=== PATIENT | female | born 1970 | race Asian ===

== ENCOUNTER 2020-01-17 10:53 | Outpatient (REF) | payer OTHER, SELFPAY ==
[2020-01-17 14:27] LABS: Alanine Aminotransferase 21 U/L (0-31); Albumin Level 4.8 g/dL (3.5-5.0); Alkaline Phosphatase 69 U/L (39-117); Anion Gap 14 (12-20); Aspartate Amino Transferase 33 U/L (5-31); Bilirubin Total 0.8 mg/dL (0.0-1.0); Blood Urea Nitrogen 10 mg/dL (9-16); Calcium 9.5 mg/dL (8.4-10.2); Carbon Dioxide 27 mmol/L (22-29); Chloride 104 mmol/L (96-108); Cholesterol 230 mg/dL; Estimated Glomerular Filt Rate > 60; Glucose Fasting 80 mg/dL (60-99); HDL Cholesterol 80 mg/dL; LDL Cholesterol Calculated 135 mg/dl; Potassium 4.5 mmol/l (3.3-5.1); Sodium 140 mmol/L (135-145); Total Protein 8.4 g/dL (6.5-8.0); Triglycerides 77 mg/dL
== END 2020-01-17 10:54 | disposition home or self-care (01) ==
LOC: HO.HMGCLDS 10:53
PROVIDERS: PCP Internal Medicine; Visit Provider Internal Medicine
DX: Z00.01 Encounter for general adult medical examination with abnormal findings (principal); Z82.69 Family history of other diseases of the musculoskeletal system and connective tissue; Z86.39 Personal history of other endocrine, nutritional and metabolic disease
CPT/HCPCS: 80053; 80061; 82306; 84443; 84550

== ENCOUNTER 2020-08-09 13:06 | Outpatient (REF) | payer OTHER, SELFPAY ==
--- NOTE | ~2020-08-09 | MM_ITS ---
EXAMINATION: MM SCREENING DIGITAL BREAST TOMOSYNTHESIS, BILATERAL CLINICAL INFORMATION: Screening. Asymptomatic. The lifetime risk of breast cancer based on the Tyrer-Cuzick Model is 11.6%. COMPARISON: Mammography: July 27, 2019 and studies dating back to July 01, 2010 TECHNIQUE: Digital breast tomosynthesis is performed in both the craniocaudal and mediolateral oblique views along with computer-aided detection (CAD). Synthesized 2D images are generated from the tomosynthesis. FINDINGS: The breasts are extremely dense, which lowers the sensitivity of mammography (ACR BI-RADS breast composition Category d). There are no significant masses, abnormal calcifications, or other abnormalities. MM/MM tomosynthesis screening BI IMPRESSION: There are no significant changes from prior study. ASSESSMENT: BI-RADS 1: Negative RECOMMENDATION: Routine annual mammography screening. This patient's information was entered into a reminder system with a target due date for their next mammogram.
== END 2020-08-09 13:07 | disposition home or self-care (01) ==
LOC: HO.MAMMO 13:06
PROVIDERS: Visit Provider Internal Medicine
DX: Z12.31 Encounter for screening mammogram for malignant neoplasm of breast (principal)
CPT/HCPCS: 77063; 77067

== ENCOUNTER 2020-09-04 17:18 | Inpatient (IN) | payer OTHER, SELFPAY ==
--- NOTE | ~2020-09-04 | US_ITS ---
EXAMINATION: US ABDOMEN LIMITED CLINICAL INFORMATION: Right upper quadrant abdominal pain. Evaluate for acute cholecystitis. COMPARISON: None TECHNIQUE: Real-time imaging of the right upper quadrant abdominal viscera. FINDINGS: PANCREAS: Normal. LIVER: Normal. The liver is normal in size. The liver contour is normal. Parenchymal echogenicity is normal. No focal hepatic lesion. There is no intrahepatic biliary duct dilatation seen. GALLBLADDER: Normal or stone measuring up to 2.1 cm. No gallbladder wall thickening or pericholecystic free fluid to suggest acute cholecystitis. COMMON BILE DUCT: Normal in caliber measuring 0.7 cm in diameter. RIGHT KIDNEY: Exophytic simple cyst measuring 0.8 cm. Findings are not clinically significant and no follow up imaging is recommended. No renal stone. No hydronephrosis. The kidney measures 10.6 cm in maximum dimension. FREE FLUID: None. US/US abdomen limited IMPRESSION: Cholelithiasis without gallbladder wall thickening or pericholecystic free fluid to suggest acute cholecystitis.
[2020-09-04 17:38] VITALS: BP 113/64; PULSE 61; RESP 15; TEMP 36.6; O2SAT 99; BMI 20.7
--- NOTE | 2020-09-04 17:48 | ED_ITS ---
HPI - Abdominal Pain General Chief Complaint: Abdominal Pain Stated Complaint: Vomiting Abd Pain Time Seen by Provider: 09/04/20 17:29 Source: patient and family Mode of arrival: wheelchair Limitations: no limitations History of Present Illness HPI narrative: 50-year-old female with a past medical history of hyperlipidemia here with complaints of right upper quadrant abdominal pain with vomiting since 15:00. No urinary symptoms, fevers, chills, diarrhea. No longer has her menses. Related Data Previous Rx's Medication Instructions Recorded simvastatin 10 mg tablet 10 mg PO BEDTIME #90 cap 01/10/20 Allergies Allergy/AdvReac Type Severity Reaction Status Date / Time aspirin [Aspirin] Allergy Mild LARGER Verified 01/16/20 12:21 DOSES ONLY--HIVES, hives latex [Latex] Allergy Mild ITCHING/BEREKET Verified 01/16/20 12:21 H ibuprofen [From MOTRIN] Allergy Unknown HIVES Verified 01/16/20 12:21 aspirin in reg/strong doses Allergy Unknown hives Uncoded 05/04/18 00:00 (t Review of Systems Review of Systems Yes all other systems are reviewed and are negative Constitutional: Reports no additional constitutional complaints, Denies body ache(s), Denies chills, Denies fever(s), Denies headache(s) and Denies weakness Eyes: Reports no additional eye complaints and Denies change in vision Reports system reviewed and no additional complaints, except as documented, Denies dizziness, Denies headache(s), Denies nasal congestion, Denies nasal discharge and Denies neck pain Cardiovascular: Reports no additional cardiovascular complaints, Denies chest pain, Denies leg edema and Denies dyspnea Respiratory: Reports no additional respiratory complaints, Denies cough and Denies dyspnea Gastrointestinal: Reports no additional gastrointestinal complaints, Reports abdominal pain, Denies diarrhea, Reports nausea and Reports vomiting Genitourinary: Reports no additional female genitourinary complaints and Denies urinary incontinence Musculoskeletal: Reports no additional musculoskeletal complaints, Denies back p ain, Denies arthralgias, Denies joint swelling, Denies neck pain, Denies numbness and Denies tingling Skin/Breast: Reports system reviewed and no additional complaints, except as docu and Denies rash Reports system reviewed and no additional complaints, except as documented, Denies dizziness, Denies headache(s), Denies numbness, Denies tingling and Denies weakness Physical Exam Vital Signs: Vital Signs: Last Vital Signs Temp 97.9 F 09/04/20 17:38 Pulse 61 09/04/20 17:38 Resp 15 09/04/20 17:38 BP 113/64 09/04/20 17:38 Pulse Ox 99 09/04/20 17:38 Body Mass Index 20.7 Const: Other: In pain Orientation/consciousness: patient oriented x3 Limitations: no limitations HENMT: Head: Yes normal to inspection Mouth: Normal oral and palatal mucosa present Throat: Yes posterior oropharynx normal Eyes: General: appearance normal, both eyes and all related structures Pupils: Equal, round and reactive pupils present Chest: Chest palpation & inspection: normal inspection of the chest Resp: Effort & Inspection: normal respiratory effort Auscultation: clear to auscultation bilaterally Cardio: Rate: regular rate Rhythm: regular rhythm Peripheral pulses: Peripheral pulses 2+ throughout GI: Inspection: Yes normal to inspection Palpation (GI): Soft to palpation, Tenderness to palpation present (GI) (Right upper quadrant) and Guarding due to palpation present (GI) Auscultation: normal bowel sounds Skin: General skin exam: no rashes or lesions noted Neuro: General: patient oriented x3 and moves all extremities Cranial nerves: Yes Equal, round and reactive pupils present Cognition (Neuro): normal cognition Course Course Course Narrative: [age] year female here with right upper quadrant abdominal pain with vomiting sicne 3pm. Will check labs, UA, abdominal US 1830-Pain, nausea improved. Labs show no leukocytosis. Mildly elevation AST/ALT. Abdominal US informally gallstones. D/w with medical oncologist surgery. Plan for admit for OR tomorrow. MDM - Abdominal Pain MDM Narrative Medical decision making narrative: Cholecystitis, gallstone Medical Records Attestation: I reviewed the patient's medical records. Lab Data Attestation: I reviewed the patient's lab results. Result diagrams: 09/04/20 17:53 09/04/20 17:53 Labs: Lab Results 09/04/20 09/04/20 09/04/20 Range/Units 17:53 17:53 18:59 WBC 9.0 (4.8-10.8) X10*3/uL RBC 4.55 (4.20-5.50) X10*6/uL Hgb 14.4 (12.0-16.0) g/dl Hct 41.3 (37-47) % MCV 90.8 (80-98) fL MCH 31.6 (27.0-33.0) pg MCHC 34.9 (31.0-35.0) g/dl RDW 12.9 (11.0-16.0) % Plt Count 248 (160-400) X10*3/uL MPV 9.4 (9.4-12.3) fL Immature Gran % (Auto) 0.2 (0.0-0.4) % Neut % (Auto) 74.4 H (45-73) % Lymph % (Auto) 19.7 L (20-40) % Motley % (Auto) 5.0 (2-11) % Eos % (Auto) 0.3 (0-4) % Baso % (Auto) 0.4 (0-2) % Lymph # (Auto) 1.8 (1.2-4.9) X10*3/uL Motley # (Auto) 0.5 (0.1-1.2) X10*3/uL Eos # (Auto) 0.0 (0.0-0.4) X10*3/uL Baso # (Auto) 0.0 (0.0-0.2) X10*3/uL Abs Immat Gran (auto) 0.02 (0.00-0.03) X10*3/uL Absolute Neuts (auto) 6.7 (2.0-8.3) X10*3/uL Absolute Nucleated RBC 0.000 (0.0-0.012) X10*3/uL Nucleated RBC % (auto) 0.0 (0.0-0.2) /100WBC Sodium 143 (135-145) mmol/L Potassium 4.0 (3.3-5.1) mmol/L Chloride 102 (96-108) mmol/L Carbon Dioxide 29 (22-29) mmol/L Anion Gap 16 (12-20) BUN 18 H D (9-16) mg/dL Creatinine 0.83 (0.5-1.4) mg/dL Estim Creat Clear Calc 65.5 Estimated GFR > 60 Random Glucose 146 H (60-115) mg/dL Calcium 9.5 (8.4-10.2) mg/dL Total Bilirubin 0.7 (0.0-1.0) mg/dL Direct Bilirubin 0.5 (0.0-0.5) mg/dL AST 304 H (5-31) U/L ALT 139 H (0-31) U/L Alkaline Phosphatase 106 D (39-117) U/L Total Protein 8.3 H (6.5-8.0) g/dL Albumin 4.7 (3.5-5.0) g/dL COVID-19 (RADHA) Negative (Negative) COVID-19 Clin Com See Note Imaging Data US - abdomen: Attestation: I personally reviewed and interpreted this imaging study as follows: Radiologist's impression: FINDINGS: PANCREAS: Normal. LIVER: Normal. The liver is normal in size. The liver contour is normal. Parenchymal echogenicity is normal. No focal hepatic lesion. There is no intrahepatic biliary duct dilatation seen. GALLBLADDER: Normal or stone measuring up to 2.1 cm. No gallbladder wall thickening or pericholecystic free fluid to suggest acute cholecystitis. COMMON BILE DUCT: Normal in caliber measuring 0.7 cm in diameter. RIGHT KIDNEY: Exophytic simple cyst measuring 0.8 cm. Findings are not clinically significant and no follow up imaging is recommended. No renal stone. No hydronephrosis. The kidney measures 10.6 cm in maximum dimension. FREE FLUID: None. US/US abdomen limited IMPRESSION: Cholelithiasis without gallbladder wall thickening or pericholecystic free fluid to suggest acute cholecystitis. Discharge Plan Discharge Clinical Impression: Gallstones Patient Disposition: Admitted As Inpatient [facility] Past Medical History Attestation statement: The following information was validated with the patient. Source: old records reviewed and nursing notes reviewed Medical History Dyslipidemia Family history of gout History of hyperthyroidism Surgical History History of breast biopsy Family History Family History Father CAD (coronary artery disease) Cancer of prostate Colon cancer Hyperlipidemia CVD (cardiovascular disease) Gout Mother Hyperlipidemia HTN (hypertension) Psoriasis Rheumatoid arthritis Gout Maternal Aunt Breast cancer Gout Paternal Aunt Myocardial infarction Gout Brother Gout Brother Gout Daughter No problems noted. Daughter No problems noted. Social History Social History Alcohol intake: current Advance Directives: No Advance Directives Information Provided: Yes Patient : No
[2020-09-04] MEDS: Morphine Sulfate 4 MG/ML CARTRIDGE IVPUSH (17:57)
[2020-09-04] MEDS: 0.9 % Sodium Chloride 1,000 ML 999 ML IV (17:57)
[2020-09-04 17:58] LABS: MANUAL DIFF FLAG NO
[2020-09-04 17:59] LABS: Basophils Percent Auto 0.4 % (0-2); Eosinophils Percent Auto 0.3 % (0-4); Hematocrit 41.3 % (37-47); Hemoglobin 14.4 g/dl (12.0-16.0); Imm Gran Abs Auto 0.02 X10*3/uL (0.00-0.03); Imm Gran Pct Auto 0.2 % (0.0-0.4); Lymphocytes Absolute Auto 1.8 X10*3/uL (1.2-4.9); Lymphocytes Percent Auto 19.7 % (20-40); Mean Corpuscular HGB Conc 34.9 g/dl (31.0-35.0); Mean Corpuscular Hemoglobin 31.6 pg (27.0-33.0); Mean Corpuscular Volume 90.8 fL (80-98); Mean Platelet Volume 9.4 fL (9.4-12.3); Monocytes Absolute Auto 0.5 X10*3/uL (0.1-1.2); Neutrophils Absolute Auto 6.7 X10*3/uL (2.0-8.3); Neutrophils Percent Auto 74.4 % (45-73); Platelet Count 248 X10*3/uL (160-400); Red Blood Count 4.55 X10*6/uL (4.20-5.50); Red Cell Distribution Width 12.9 % (11.0-16.0)
[2020-09-04 18:28] LABS: Alanine Aminotransferase 139 U/L (0-31); Albumin Level 4.7 g/dL (3.5-5.0); Alkaline Phosphatase 106 U/L (39-117); Anion Gap 16 (12-20); Aspartate Amino Transferase 304 U/L (5-31); Bilirubin Direct 0.5 mg/dL (0.0-0.5); Bilirubin Total 0.7 mg/dL (0.0-1.0); Blood Urea Nitrogen 18 mg/dL (9-16); Calcium 9.5 mg/dL (8.4-10.2); Carbon Dioxide 29 mmol/L (22-29); Chloride 102 mmol/L (96-108); Creatinine Clr Calc Pharmacy 65.5; Estimated Glomerular Filt Rate > 60; Glucose Random 146 mg/dL (60-115); Sodium 143 mmol/L (135-145); Total Protein 8.3 g/dL (6.5-8.0)
--- NOTE | 2020-09-04 18:49 | PHA.MEDREC ---
Pharmacy Consult ? Medication Reconciliation Pharmacy has completed the medication reconciliation.
[2020-09-04 19:21] LABS: COVID-19 Test Negative (Negative); IDNOW Serial# 08D9AD1C
--- NOTE | 2020-09-04 19:28 | PM.HPGS ---
History of Present Illness History of Present Illness Date of Service: 09/05/20 Chief complaint: Gallstones Narrative: Meredith Hooks is a 50 year old female who started to have severe, sudden epigastric and right upper quadrant pain at around 3 pm today. She had multiple episodes of vomitting as well. She described the pain as radiating to the right shoulder. The pain was decribed as severe, causing her to double up on the couch. She was therefore brought to the ED. She does not have any similar episodes in the past. She was otherwise in her usual state of health today. She has no diarrhea. She felt better after getting pain meds in the ED, but states that the RUQ pain still comes in waves although lesser in intensity. Review of Systems Constitutional: Constitutional: Denies chills and Denies fever(s) Cardiovascular: Cardiovascular: Denies chest pain, Denies dyspnea and Denies dyspnea on exertion Respiratory: Respiratory: Denies cough, Denies dyspnea and Denies dyspnea on exertion Gastrointestinal: Gastrointestinal: Denies hematochezia and Denies change in bowel habits Genitourinary: Genitourinary: Denies hematuria Musculoskeletal: Musculoskeletal: Denies back pain and Denies limited range of motion Neurologic: Denies focal weakness and Denies convulsions Psychiatric: Psychiatric: Denies depression and Denies mood swings PMFSH Past Medical History Medical History Dyslipidemia Family history of gout History of hyperthyroidism Family History Family History Father CAD (coronary artery disease) Cancer of prostate Colon cancer Hyperlipidemia CVD (cardiovascular disease) Gout Mother Hyperlipidemia HTN (hypertension) Psoriasis Rheumatoid arthritis Gout Maternal Aunt Breast cancer Gout Paternal Aunt Myocardial infarction Gout Brother Gout Brother Gout Daughter No problems noted. Daughter No problems noted. Surgical History Surgical History History of breast biopsy Social History Social History Household Members: Family Housing: House Do you presently have visiting nurse or other home services: No Alcohol intake: never Patient Tobacco Use Status: Former Tobacco user Tobacco use type: Cigarette Use of substances other than those prescribed or required for medical reasons: No Currently Displaying Signs/Symptoms of Drug Intoxication Withdrawal: No Have you been hit, kicked, punched, or otherwise hurt by someone within the past year? If so, by whom?: No Do you feel safe in your current relationship?: No Is there a partner from a previous relationship who is making you feel unsafe now?: No Are you made to feel afraid or neglected: No Advance Directives: No Advance Directives Information Provided: Yes Do you have thoughts of harming others: None Do you have a plan to hurt others: No Plan Recently lost weight without trying: No How much weight loss: Not applicable Eating poorly because of decreased appetite: No Nutrition screen score: 0 Nutrition Risks: No Nutritional Risk Patient : No : No Poor oral hygiene: No service: No Current occupational status: unemployed Meds Allergies Allergy/AdvReac Type Severity Reaction Status Date / Time aspirin [Aspirin] Allergy Mild LARGER Verified 01/16/20 12:21 DOSES ONLY--HIVES, hives latex [Latex] Allergy Mild ITCHING/BEREKET Verified 01/16/20 12:21 H ibuprofen [From MOTRIN] Allergy Unknown HIVES Verified 01/16/20 12:21 aspirin in reg/strong doses Allergy Unknown hives Uncoded 05/04/18 00:00 (t Active Medications: Current Medications Generic Name Dose Route Start Last Admin Trade Name Freq PRN Reason Stop Dose Admin Lactated Ringer's 1,000 mls @ 80 mls/hr 09/04/20 19:30 Lr IVCONT .[id number] [facility] Morphine Sulfate 3 mg 09/04/20 19:25 Morphine Sulfate 4 Mg/Ml Cartridge IVPUSH Q3H PRN Pain, Severe (Pain Scale 7-10) Pharmacy Consult 1 each 09/04/20 18:34 Consult Rx Perform Med Rec MISCELLANE ONCE PRN Consult order Sodium Chloride 3 ml 09/05/20 00:00 0.9 % Sodium Chloride Flush 3 Ml Syringe IVFLUSH QSHIFT [facility] Physical Exam Vital Signs: Vital Signs: Last Vital Signs Temp 97.9 F 09/04/20 17:38 Pulse 61 09/04/20 17:38 Resp 15 09/04/20 17:38 BP 113/64 09/04/20 17:38 Pulse Ox 99 09/04/20 17:38 Body Mass Index 20.7 Const: General: comfortable and no acute distress Orientation/consciousness: patient oriented x3 Neck: Neck: Yes no lymphadenopathy Resp: Auscultation: clear to auscultation bilaterally Cardio: Rhythm: regular rhythm GI: Other: some tenderness, RUQ, no rebound or guarding, no Sequeira's sign Palpation (GI): Soft to palpation, nontender and no guarding Neuro: General: patient oriented x3 Results Results Labs: Short CBC 09/04/20 Range/Units 17:53 WBC 9.0 (4.8-10.8) X10*3/uL Hgb 14.4 (12.0-16.0) g/dl Hct 41.3 (37-47) % Plt Count 248 (160-400) X10*3/uL BMP 09/04/20 17:53 Sodium 143 Potassium 4.0 Chloride 102 Carbon Dioxide 29 BUN 18 H D Creatinine 0.83 Calcium 9.5 Liver Function 09/04/20 Range/Units 17:53 Total Bilirubin 0.7 (0.0-1.0) mg/dL Direct Bilirubin 0.5 (0.0-0.5) mg/dL AST 304 H (5-31) U/L ALT 139 H (0-31) U/L Alkaline Phosphatase 106 D (39-117) U/L Albumin 4.7 (3.5-5.0) g/dL Abdominal ultrasound report/results: report reviewed and image reviewed Assessment and Plan (1) Gallstones: Status: Acute 50F with severe RUQ pain this afternoon, with an US showing gallstones. There is no evidence of GB wall thickening or pericholecystic fluid. She however continues to have periodic pain that comes in waves suggestive of severe biliary colic. She will be therefore admitted for laparoscopic cholecystectomy tomorrow in view of her severe periodic pain. She understands the technque of the procedure, as well as the risks, including but not limited to bleeding, infections, injury to other organs, bile leak, retained stones, possible conversion to open, as well as the benefits and alternatives. Her ALT and AST are elevated but her bilirubin is normal. Her LFTs will be repeated in AM. Quality Stroke Does the patient have a stroke diagnosis?: No VTE Prior VTE?: No VTE Risk Level:: Medical - low VTE Device Contraindication: N/A - Device Ordered VTE Drug Contraindication: Patient Refused Procedures Date of Service Date of Service: 08/07/20
[2020-09-04 20:08] LABS: Glucose Urine UA NEG (NEG); Leukocyte Esterase Urine NEG (NEG); Nitrite Urine NEG (NEG); Specific Gravity - Urine 1.015 (1.005-1.025); Urine Blood NEG (NEG); Urine Ketones 5 MG/DL (NEG); Urine Protein NEG (NEG-TRACE)
[2020-09-04 20:09] LABS: Appearance Urine CLEAR; Color Urine YELLOW
--- NOTE | 2020-09-04 20:30 | PC.NURSE ---
ATTEMPT TO CALL THE FLOOR FOR REPORT, NO ANSWER.
[2020-09-04 21:34] VITALS: BP 94/59; PULSE 56; RESP 16; TEMP 36.6; O2SAT 99
[2020-09-04] MEDS: Lactated Ringers 1,000 ML 80 ML IVCONT (21:35)
[2020-09-04 21:37] VITALS: BMI 20.9
[2020-09-05] VITALS (10 sets, daily range): BP systolic 90–123; BP diastolic 50–62; PULSE 52–74; RESP 16–18; TEMP 36.2–36.9; O2SAT 97–100
--- NOTE | 2020-09-05 07:21 | PM.PNGS ---
Subjective Subjective Date of Service: 09/05/20 Interval history: Feels much improved this morning with decreased abdominal pain, no further nausea or vomiting. Physical Exam Vital Signs: Vital Signs: Last Vital Signs Temp 98.2 F 09/05/20 04:00 Pulse 57 09/05/20 04:00 Resp 16 09/05/20 04:00 BP 96/52 L 09/05/20 04:00 Pulse Ox 97 09/05/20 04:00 Body Mass Index 20.9 Resp: Other: Breathing comfortably on room air no respiratory distress GI: Other: Soft, nondistended nontender Extrem: General: No edema Procedures Date of Service Date of Service: 09/05/20 Progress Note: A&P Assessment and plan (1) Gallstones: Status: Acute Assessment and Plan: 50-year-old female with a sudden onset of abdominal pain in the right upper quadrant associated with nausea and vomiting found to have gallstones within the gallbladder. No wall thickening or pericholecystic fluid was identified. Findings are suggestive of symptomatic cholelithiasis. Assessment and Plan: Patient given the option of either elective laparoscopic cholecystectomy verses cholecystectomy on this admission. She is comfortable proceeding with surgery today and after discussion of the procedure, risks, and alternatives, consents to a laparoscopic or possible open cholecystectomy. She has been added onto the operative schedule for today. Fall Risk Details Current Medications: Current Medications Generic Name Dose Route Start Last Admin Trade Name Freq PRN Reason Stop Dose Admin Lactated Ringer's 1,000 mls @ 80 mls/hr 09/04/20 19:30 09/04/20 21:35 Lr IVCONT 80 mls/hr .[id number] CARL Administration Promethazine HCl 12.5 mg/ 50.5 mls @ 202 mls/hr 09/04/20 20:12 Sodium Chloride IV Q6H PRN Nausea Morphine Sulfate 3 mg 09/04/20 19:25 Morphine Sulfate 4 Mg/Ml Cartridge IVPUSH Q3H PRN Pain, Severe (Pain Scale 7-10) Ondansetron HCl 4 mg 09/04/20 20:12 Ondansetron Hcl 4 Mg/2 Ml Vial IVPUSH Q8H PRN Nausea Pharmacy Consult 1 each 09/04/20 18:34 Consult Rx Perform Med Rec MISCELLANE ONCE PRN Consult order Sodium Chloride 3 ml 09/05/20 00:00 09/05/20 01:55 0.9 % Sodium Chloride Flush 3 Ml Syringe IVFLUSH Not Given QSHIFT CARL Time Spent With Patient Time: Total time spent is greater than 50% in coordination of care (as documented) at patient's floor/unit and/or counseling patient: Time with patient: 15 - 24 minutes Quality Stroke Does the patient have a stroke diagnosis?: No VTE Prior VTE?: No VTE Risk Level:: Medical - low VTE Device Contraindication: N/A - Device Ordered VTE Drug Contraindication: Patient Refused
[2020-09-05 07:47] LABS: Alanine Aminotransferase 111 U/L (0-31); Albumin Level 3.8 g/dL (3.5-5.0); Alkaline Phosphatase 83 U/L (39-117); Aspartate Amino Transferase 107 U/L (5-31); Bilirubin Direct 0.3 mg/dL (0.0-0.5); Bilirubin Total 0.7 mg/dL (0.0-1.0); Total Protein 6.6 g/dL (6.5-8.0)
--- NOTE | 2020-09-05 09:14 | MHC.CM.PN ---
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 PT GIVEN EDUCATIONAL HANDOUTS, ORIGINAL AND 3 COPIES, COPY HAS BEEN UPLOADED TO [employer] AND PLACED IN PT CHART. D/C PLAN: HOME SELF-CARE, PT WILL ARRANGE TRANSPORTATION HCP: CRISTI CASTANEDA [phone]
[2020-09-05] MEDS: Lactated Ringers 1,000 ML 80 ML IVCONT ×2 (09:56→14:18)
--- NOTE | 2020-09-05 10:29 | MHC.SHP ---
Pre-Procedural Eval Section A Date of Service: 09/05/20 The patient is an INPATIENT: Yes Section B Chief Complaint: Gallstones Allergies: Allergies Allergy/AdvReac Type Severity Reaction Status Date / Time aspirin [Aspirin] Allergy Mild LARGER Verified 01/16/20 12:21 DOSES ONLY--HIVES, hives latex [Latex] Allergy Mild ITCHING/BEREKET Verified 01/16/20 12:21 H ibuprofen [From MOTRIN] Allergy Unknown HIVES Verified 01/16/20 12:21 aspirin in reg/strong doses Allergy Unknown hives Uncoded 05/04/18 00:00 (t Plan Diagnosis/Plan: Unchanged I have reviewed the history and physical and performed a pertinent physical examination on my patient. No changes have occurred unless specified.
--- NOTE | 2020-09-05 10:47 | PC.NURSE ---
pt has a 20 left wrist patent from the floor
--- NOTE | 2020-09-05 13:06 | W.PM.OPN ---
Operative Note Operative Note Date of Service: 09/05/20 Narrative: Preoperative diagnosis: Symptomatic cholelithiasis Postoperative diagnosis: Same Procedure: Laparoscopic cholecystectomy Surgeon: Domo Mckinney MD Outer Diameter Grinder Tool: MIKE Quintanilla Anesthesia: General endotracheal Indications for procedure: 50-year-old female presenting with complaints of abdominal pain in the epigastrium and right upper quadrant found on ultrasound to have gallstones within the gallbladder without wall thickening or pericholecystic fluid Operative findings: Gallstones within the gallbladder with pericholecystic fluid suggestive of symptomatic cholelithiasis Specimen: Gallbladder Estimated blood loss: 5 mL Complications: None Procedure details: Patient was brought to the OR and placed in a supine position. After administering general anesthesia the patient's abdomen was prepped with ChloraPrep and draped in a sterile fashion. Local anesthesia consisting of 0.25% Sensorcaine with epinephrine was infiltrated in a periumbilical region. A 5 mm incision was made above the umbilicus in a transverse fashion. The Veress needle was then inserted while elevating abdominal cavity with towel clips. After positive drop test the abdomen was insufflated to a pressure of 15 mm of mercury. The Veress needle was then removed and a 5 mm trocar inserted. The camera was inserted in the abdomen explored. A 12 mm trocar was then placed in the epigastrium and two 5 mm trocars placed in the right upper quadrant. The patient was placed in reverse Trendelenburg positioning and rotated to the left. The gallbladder was grasped with the fundus and retracted cephalad. The infundibulum Was then grasped and retracted away from the liver bed. The Dolphin dissected was then used to dissect the peritoneum off the infundibulum to reveal the junction with the cystic duct. Cystic artery was noted slightly medial and posterior to the cystic duct. After obtaining a critical view the cystic duct was doubly clipped and divided. The cystic artery was then doubly clipped and divided. The gallbladder was then dissected off the liver bed using electrocautery with an L hook. Hemostasis was assured all times using the electrocautery. When the gallbladder is completely dissected off the liver bed was placed in an Endo-Catch bag and brought out through the epigastric incision. The gallbladder was sent to pathology for further examination. The abdomen was then re-examined. The liver bed was irrigated and suctioned dry. No bleeding or bile leak could be identified. CO2 was then evacuated and all trocars removed. Fascia was closed at the epigastric incision using a [id number] Polysorb suture. Skin was closed in all incisions using a subcuticular 4 0 Polysorb suture. Sterile dressings consisting of Steri-Strips, 2 x 2 gauze, and Tegaderm were then applied. The patient tolerated the procedure well. Sponge instrument and needle counts reported as correct. The patient was transferred to PACU in stable condition.
--- NOTE | 2020-09-05 13:55 | PC.NURSE ---
1400 returned from PACU dsgs D@I on abd. abd soft. 3 pressure. VSS
[2020-09-05] MEDS: Morphine Sulfate 4 MG/ML CARTRIDGE 3 MG IVPUSH (15:29)
--- NOTE | 2020-09-06 09:37 | P.DS_ITS ---
DS: Providers Provider Date of Service: 09/05/20 Date of admission: 09/04/20 19:18 Primary care physician: Lolis Ching MD DS: Diagnosis Discharge Diagnosis (1) Gallstones: Status: Acute (2) S/P laparoscopic cholecystectomy: Status: Acute DS: Medications Discharge Medications Home Medications: Previous Rx's Medication Instructions Recorded simvastatin 10 mg tablet 10 mg PO BEDTIME #90 cap 01/10/20 oxycodone 5 mg tablet 5 mg PO Q4H PRN #24 tab 09/05/20 DS: Summary Hospital Course Hospital Course: Brief HPI: Meredith Hooks is a 50 year old female who started to have severe, sudden epigastric and right upper? quadrant pain at around 3 pm today. She had multiple episodes of vomiting as well. She described the pain as radiating to the right shoulder. The pain was described as severe, causing her to double up on the couch. She was therefore brought to the ED. She does not have any similar episodes in the past. She was otherwise? in her usual state of health today. She has no diarrhea. She felt better after getting pain meds in the ED, but states that the RUQ pain still comes in waves although lesser in intensity. Hospital Course: She was admitted to the surgical service for treatment of symptomatic cholelithiasis. She was started on IVF, PRN analgesics and antiemetics. She felt improved the following day but wanted to proceed with cholecystectomy. On 09/05/20, a laparoscopic cholecystectomy was performed by Dr. Mckinney without immediate complications. The patient tolerated the procedure well. The patient felt well following the procedure later that day and was tolerating a solid diet without nausea and was comfortable. She felt ready for discharge. She was disch arged to home on 09/05/20 in stable condition. She is to follow up with Dr. Mckinney in 1 week. Status at Discharge Functional status at discharge: independent ambulation Overall status at discharge: patient is progressing back to baseline Time Spent with Patient Time attestation: Total time spent providing and/or coordinating discharge services: Discharge coordination time: Less than 30 minutes Quality: Stroke Does the patient have a stroke diagnosis?: No Physical Exam Vital Signs: Vital Signs: Last Vital Signs Temp 97.1 F 09/05/20 15:26 Pulse 60 09/05/20 15:26 Resp 16 09/05/20 15:26 BP 105/52 L 09/05/20 15:26 Pulse Ox 100 09/05/20 15:26 Body Mass Index 20.9 Const: General: healthy appearing, comfortable, no acute distress and alert Orientation/consciousness: patient oriented x3 Resp: Effort & Inspection: normal respiratory effort Cardio: Rate: regular rate GI: Inspection: No distended and Yes incision (dressings c/d/i) Palpation (GI): Soft to palpation, Tenderness to palpation present (GI) (mild, incisional), no guarding and not rigid Percussion: Yes normal to percussion Skin: General skin exam: no rashes or lesions noted Neuro: General: patient oriented x3 Extrem: General: Yes no clubbing, cyanosis or edema DS: Data Data Completed and Pending Completed studies during hospitalization [Text1]: Procedures Resection of Gallbladder, Percutaneous Endoscopic Approach (09/04/20) Pending studies at discharge: Pending at discharge 09/05/20 12:36 Surgical [PTH] Routine Discharge Plan Discharge Patient Disposition: Home, Self-Care Discharge Diagnosis: symptomatic cholelithiasis Referrals: Lolis Ching MD [Primary Care Provider] - 1 Week Domo Mckinney MD [Physician] - 1 Week Discharge Medications: New oxycodone 5 mg tablet 5 mg PO Q4H PRN (Reason: pain (scale score 7-10)) Qty: 24 RF: 0 Continued simvastatin 10 mg tablet 10 mg PO BEDTIME Qty: 90 RF: 2 Discharge Orders: Discharge Order (Routine); Ordered 09/05/20 Ordered By: Domo Mckinney Diet: advance to usual diet and low fat, low cholesterol Activity on Discharge: No heavy lifting Stand Alone Forms: Patient Portal Discharge page Activity Restrictions/Additional Instructions: If the incision area is tender, you may apply an ice pack for short intervals (No more than 20 minutes on, followed by at least 20 minutes off). Do not apply heat. Do not use creams, lotions, or topical antibiotics unless instructed to do so by your surgeon. These can cause infection or allergic reaction. Ok to shower. Remove clear dressings 3 days following your procedure. You have steri strips (small white cloth strips) covering your incision- these will fall off ~1 week. No heavy lifting (>10lbs)! Call Your Doctor If: -Your temperature exceeds 101.5? F -You experience excessive pain or swelling -You have an unexpected reaction to medication -You have excessive bleeding -You experience continued vomiting/nausea -Your incision begins to separate -Your incision shows signs of infection such as increased redness, swelling, excessive pain, drainage (light blood or clear fluid is normal) or heat Care Plan Goals: Return to baseline health and activity. Health Concerns: Symptomatic cholelithiasis, S/p laparoscopic cholecystectomy Plan of Treatment: Advance diet, pain control, discharge to home Assessment: 50 year old female who presented with RUQ abdominal pain and vomiting, found to have gallstones on imaging and admitted for symptomatic cholelithiasis. She is now s/p laparoscopic cholecystectomy and feels improved. She is tolerating a solid diet and abdomen is with appropriate post op tenderness, dressings c/d/i. She is stable for discharge to home. Discharge Date/Time: 09/05/20 17:30
== END 2020-09-05 17:30 | disposition home or self-care (01) | DRG 263 ==
LOC: HO.ED 18:36 → HO.EDOVER 19:52 → HO.S3 20:47
PROVIDERS: Nurse Practitioner Family; Surgery; Admitting Provider Surgery; Emergency Provider Emergency Medicine; PCP Internal Medicine; Visit Provider Surgery
PROC: 0FT44ZZ Resection of Gallbladder, Percutaneous Endoscopic Approach (ICD-10-PCS; CPT 47562; principal; 2020-09-05 11:20)
DX: K80.20 Calculus of gallbladder without cholecystitis without obstruction (principal); E03.9 Hypothyroidism, unspecified; E78.5 Hyperlipidemia, unspecified; Z20.822 Contact with and (suspected) exposure to COVID-19; Z87.891 Personal history of nicotine dependence; Z88.6 Allergy status to analgesic agent
CPT/HCPCS: 36415; 76705; 80048; 80076; 81003; 85025; 87635; 88304; 99285; J0131; J1100; J2250; J2270; J2405; J3010

== ENCOUNTER 2021-09-17 15:52 | Outpatient (REF) | payer OTHER, SELFPAY ==
--- NOTE | ~2021-09-17 | MM_ITS ---
EXAMINATION: MM SCREENING DIGITAL BREAST TOMOSYNTHESIS, BILATERAL CLINICAL INFORMATION: Screening. Asymptomatic. The lifetime risk of breast cancer based on the Tyrer-Cuzick Model is 14%. COMPARISON: Mammography: 08/09/2020, 07/27/2019, 07/21/2018 TECHNIQUE: Digital breast tomosynthesis is performed in both the craniocaudal and mediolateral oblique views along with computer-aided detection (CAD). Synthesized 2D images are generated from the tomosynthesis. Additional right CC view is provided. FINDINGS: The breasts are heterogeneously dense, which may obscure small masses (ACR BI-RADS breast composition Category c). There are no significant masses, abnormal calcifications, or other abnormalities. Parenchymal pattern is similar to prior studies. No developing density or architectural abnormality. There are scattered punctate round calcifications again seen. The skin contours are smooth. No significant changes. MM/MM tomosynthesis screening BI IMPRESSION: No mammographic evidence of malignancy. ASSESSMENT: BI-RADS 1: Negative RECOMMENDATION: Routine annual mammography screening. This patient's information was entered into a reminder system with a target due date for their next mammogram.
== END 2021-09-17 15:53 | disposition home or self-care (01) ==
LOC: HO.MAMMO 15:52
PROVIDERS: Visit Provider Internal Medicine
DX: Z12.31 Encounter for screening mammogram for malignant neoplasm of breast (principal)
CPT/HCPCS: 77063; 77067

== ENCOUNTER 2021-11-16 08:25 | Outpatient (REF) | payer OTHER, SELFPAY ==
[2021-11-16 11:34] LABS: Estimated Average Glucose 103 mg/dL; Hemoglobin A1c % 5.2 %
[2021-11-16 11:53] LABS: Alanine Aminotransferase 23 U/L (0-31); Albumin Level 4.4 g/dL (3.5-5.0); Alkaline Phosphatase 76 U/L (39-117); Anion Gap 16 (12-20); Aspartate Amino Transferase 30 U/L (5-31); Bilirubin Total 0.4 mg/dL (0.0-1.0); Blood Urea Nitrogen 16 mg/dL (9-16); Calcium 9.4 mg/dL (8.4-10.2); Carbon Dioxide 25 mmol/L (22-29); Chloride 104 mmol/L (96-108); Cholesterol 229 mg/dL; Estimated Glomerular Filt Rate > 60; Glucose Fasting 86 mg/dL (60-99); HDL Cholesterol 77 mg/dL; LDL Cholesterol Calculated 141 mg/dl; Potassium 4.2 mmol/L (3.3-5.1); Sodium 141 mmol/L (135-145); Total Protein 7.7 g/dL (6.5-8.0); Triglycerides 57 mg/dL; Uric Acid 7.1 mg/dL (2.4-5.7)
[2021-11-16 11:55] LABS: TSH reflex Free T4 2.09 uIU/mL (0.32-4.0); Vitamin D 25-OH Total 40.6 ng/mL (>30)
== END 2021-11-16 08:26 | disposition home or self-care (01) ==
LOC: HO.HMGCLDS 08:25
PROVIDERS: PCP Internal Medicine; Visit Provider Internal Medicine
DX: Z00.01 Encounter for general adult medical examination with abnormal findings (principal); E78.5 Hyperlipidemia, unspecified; R73.01 Impaired fasting glucose; E79.0 Hyperuricemia without signs of inflammatory arthritis and tophaceous disease; Z86.39 Personal history of other endocrine, nutritional and metabolic disease
CPT/HCPCS: 36415; 80053; 80061; 82306; 83036; 84443; 84550

== ENCOUNTER → 2022-10-14 15:45 | Outpatient (BNV) | payer OTHER, SELFPAY | PROVIDERS: Visit Provider Radiology Diagnostic Radiology | DX: Z12.31 Encounter for screening mammogram for malignant neoplasm of breast (principal) | CPT/HCPCS: 77063; 77067 ==

== ENCOUNTER 2022-10-14 15:47 | Outpatient (REF) | payer OTHER, SELFPAY ==
--- NOTE | ~2022-10-14 | MM_ITS ---
EXAMINATION: MM SCREENING DIGITAL BREAST TOMOSYNTHESIS, BILATERAL CLINICAL INFORMATION: Screening. Asymptomatic. COMPARISON: Mammography: 09/17/2021, 08/09/2020, 07/27/2019, 07/21/2018, and dating back to 2011. TECHNIQUE: Digital breast tomosynthesis is performed in both the craniocaudal and mediolateral oblique views along with computer-aided detection (CAD). Synthesized 2D images are generated from the tomosynthesis. FINDINGS: The breasts are extremely dense, which lowers the sensitivity of mammography (ACR BI-RADS breast composition Category d). There are stable bilateral scattered benign-type punctate calcifications without suspicious changes. There are focal dystrophic calcifications in the far superior right breast. There are no suspicious masses, suspicious grouped calcifications, or areas of architectural distortion. The parenchymal pattern is stable from prior exams. MM/MM tomosynthesis screening BI IMPRESSION: No mammographic evidence of malignancy. Stable benign findings. ASSESSMENT: BI-RADS BI-RADS 2 - Benign Findings RECOMMENDATION: Routine annual mammography screening. 1 year F/U This examination should not preclude the clinical evaluation of a suspicious palpable abnormality. This patient's information was entered into a reminder system with a target due date for their next mammogram.
== END 2022-10-14 15:48 | disposition home or self-care (01) ==
LOC: HO.MAMMO 15:47
PROVIDERS: Visit Provider Internal Medicine
DX: Z12.31 Encounter for screening mammogram for malignant neoplasm of breast (principal)
CPT/HCPCS: 77063; 77067

== ENCOUNTER 2022-11-21 14:38 | Outpatient (AMB) | payer OTHER, SELFPAY ==
--- NOTE | 2022-11-21 14:34 | MHC.PC.OV ---
Intake Visit Reasons: med follow up/ [phone]/ Iphone Intake Note: Pt is having her telehealth med f/u Allergies aspirin [Aspirin] Allergy (Mild, Verified 11/21/22 15:54) LARGER DOSES ONLY--HIVES, hives latex [Latex] Allergy (Mild, Verified 11/21/22 15:54) ITCHING/RASH ibuprofen [From MOTRIN] Allergy (Unknown, Verified 11/21/22 15:54) HIVES aspirin in reg/strong doses (t Allergy (Unknown, Uncoded 11/21/22 15:54) hives Medication List - Last Reconciled 11/21/22 by Lolis Ching MD rosuvastatin 5 mg PO DAILY Tobacco use date assessed: 11/21/22 Dental Screening Dental Screen Date: 11/21/22 Did you have a dental visit in the last 12 months?: Yes Did you have a dental problem in the last 6 months where you did not have access to dental care?: No Was dental information given to patient?: Patient has dentist HPI med follow up/ [phone]/ Iphone HPI Details 52-year-old lady here today for follow-up on her lipids. Has been taking rosuvastatin 5 mg every other day, and has been trying to follow low-cholesterol diet, avoiding eating pork, and stays active, hikes and walks regularly for exercise. She also has hyperuricemia, no complaints of joint pains except for occasional stiffness in fingers of both hands PFSH Medical History Hyperuricemia Impaired fasting glucose History of hyperthyroidism Family history of gout Dyslipidemia Surgical History S/P laparoscopic cholecystectomy History of breast biopsy Family History Father CAD (coronary artery disease) Cancer of prostate Colon cancer Hyperlipidemia CVD (cardiovascular disease) Gout Mother Hyperlipidemia HTN (hypertension) Psoriasis Rheumatoid arthritis Gout Maternal Aunt Breast cancer Gout Paternal Aunt Myocardial infarction Gout Brother Gout Brother Gout Daughter No problems noted. Daughter No problems noted. Social History Household Members: Family Housing: House Do you presently have visiting nurse or other home services: No Alcohol intake: never Patient Tobacco Use Status: Former Tobacco user Tobacco use type: Cigarette e-Cigarette/Vaping Use: Never Used service: No Current occupational status: unemployed Cognitive needs: No Hearing needs: No Vision needs: Yes Questionnaire PHQ-9 Over the last 2 weeks, how often have you been bothered by any of the following problems? 1. Little interest or pleasure in doing things: not at all 2. Feeling down, depressed, or hopeless: not at all 3. Trouble falling or staying asleep, or sleeping too much: not at all 4. Feeling tired or having little energy: not at all 5. Poor appetite or overeating: not at all 6. Feeling bad about yourself - or that you are a failure or have let yourself or your family down: not at all 7. Trouble concentrating on things, such as reading the newspaper or watching television: not at all 8. Moving or speaking so slowly that other people could have noticed. Or the opposite - being so fidgety or restless that you have been moving around a lot more than usual: not at all 9. Thoughts that you would be better off or of hurting yourself in some way: not at all Total score: 0 Depression Screening Interpretation: Negative Depression Screening Done: Yes 14252 - PHQ-9 Billing: Yes Source: Developed by Drs. Phuc Henry, Aditi Peralta, Gomez Urbina and colleagues, with an educational vikram from [employer]. Thrive Questionnaire Date Thrive assessed: 11/21/22 I am a: Patient What is your living situation today?: I have a steady place to live Within the past 12 months, did the food you bought not last and you didn't have the money to get more?: Never true Within the past 12 months, did you worry whether your food would run out before you got money to buy more?: Never true Do you have trouble paying for medicines?: No Do you have trouble getting transportation to medical appointments?: No Do you have trouble paying your heating and electricity bill?: No Do you have trouble taking care of your child, family member or friend?: No Do you have trouble with day-to-day activities such as bathing, preparing meals, shopping, managing finances, etc.?: No Are you currently unemployed and looking for a job?: No Are you interested in more education?: No AUDIT C Alcohol Use Questionnaire (AUDIT-C) 1. How often do you have a drink containing alcohol?: Monthly or less 2. How many drinks containing alcohol do you have on a typical day when you are drinking?: 1 or 2 3. How often do you have six or more drinks on one occasion?: Never Total Score: 1 SHERON-7 AMB Questionnaire SHERON-7 Date SHERON - 7 assessed: 11/21/22 Feeling nervous, anxious, or on edge: 0 = Not at all Not being able to stop or control worryin = Not at all Worrying too much about different things: 0 = Not at all Trouble relaxin = Not at all Being so restless that it is hard to sit still: 0 = Not at all Becoming easily annoyed or irritable: 0 = Not at all Feeling afraid as if something awful might happen: 0 = Not at all Total SHERON-7 score (0-4 normal; 5-9 mild; 10-14 moderate; 15-21 severe): 0 Source: Developed by Drs. Phuc Henry, Aditi Peralta, Gomez Urbina and colleagues, with an educational vikram from [employer]. SHERON-7 Assessment Billing SHERON-7 Assessment Tool: SHERON-7 Assessment 68420 Review of Systems Const Denies body aches and Denies headache(s) Eyes Denies change in vision ENT Denies dizziness, Denies headache(s), Denies nasal congestion, Denies nasal discharge and Denies sore throat Card Denies chest pain, Denies lightheadedness, Denies palpitations and Denies dyspnea Resp Denies chest congestion, Denies cough, Denies dyspnea and Denies wheezing GI Denies abdominal pain, Denies change in bowel habits and Denies heartburn Denies urinary frequency, Denies dysuria and Denies urinary urgency Musc Details: Intermittent episodes of pain and stiffness in fingers of both hands as well as in toes and hip, resolve spontaneously Skin/Breast Denies lesions and Denies rash Neuro Denies dizziness and Denies headache(s) Endo Denies polydipsia, Denies polyuria and Denies palpitations Francisco/Lymph Denies easy bruising Aller/Immun Denies seasonal rhinorrhea and Denies wheezing Physical exam (Primary Care) Tobacco/Smoking Status: Tobacco use Status Tobacco use date assessed 11/21/22 11/21/22 14:36 Patient Tobacco Use Status Former Tobacco user 11/21/22 14:36 Tobacco use type Cigarette 11/21/22 14:36 e-Cigarette/Vaping Use Never Used 11/21/22 14:36 PHQ-9: PHQ-9 Score PHQ-9: Total score 0 11/21/22 16:13 Depression Screening Interpretation: Negative Thrive Assessment: Date of Thrive Assessment Date Thrive assessed 11/21/22 11/21/22 14:38 Telehealth Telehealth Location of provider rendering services: practice address Location of patient: address on file Patient Identification confirmed using: Name, : Yes Telehealth method: video Patient verbally consented to treatment: Yes Patient verbally consented to billing insurance company: Yes Patient informed of any privacy concerns related to visit: Yes Minutes spent on Phone/Video with Pt.: 15 Assessment and Plan Assessment & Plan (1) Dyslipidemia: Code(s): E78.5 - Hyperlipidemia, unspecified Plan: Fasting lipid panel ordered today, continue with adhering to healthy eating habits and continue with regular exercise. Continued on current dose of rosuvastatin (2) Hyperuricemia: Code(s): E79.0 - Hyperuricemia without signs of inflammatory arthritis and tophaceous disease Plan: Continue with a low purine diet, ordered a serum uric acid level (3) Impaired fasting glucose: Code(s): R73.01 - Impaired fasting glucose Plan: Your previous fasting blood sugars were elevated above 100 mg/dL. Impaired glucose metabolism O2 at risk for developing diabetes mellitus type 2, as well as heart attack and stroke later on. Lifestyle changes at just weight loss, healthy eating habits, and regular exercise are important, and can prevent the progression to diabetes (4) Family history of gout: Code(s): Z82.69 - Family history of other diseases of the musculoskeletal system and connective tissue Plan: Will check uric acid level continue with healthy eating habits, avoiding high-protein diet, and getting regular exercise. Orders: Orders Lipid Panel 11/21/22 E78.5 - Hyperlipidemia, unspecified, E79.0 - Hyperuricemia without signs of inflammatory arthritis and tophaceous disease, R73.01 - Impaired fasting glucose, Z82.69 - Family history of other diseases of the musculoskeletal system and connective tissue Uric Acid 11/21/22 E78.5 - Hyperlipidemia, unspecified, E79.0 - Hyperuricemia without signs of inflammatory arthritis and tophaceous disease, R73.01 - Impaired fasting glucose, Z82.69 - Family history of other diseases of the musculoskeletal system and connective tissue Alanine Aminotransferase 11/21/22 E78.5 - Hyperlipidemia, unspecified, E79.0 - Hyperuricemia without signs of inflammatory arthritis and tophaceous disease, R73.01 - Impaired fasting glucose, Z82.69 - Family history of other diseases of the musculoskeletal system and connective tissue Aspartate Amino Transferase 11/21/22 E78.5 - Hyperlipidemia, unspecified, E79.0 - Hyperuricemia without signs of inflammatory arthritis and tophaceous disease, R73.01 - Impaired fasting glucose, Z82.69 - Family history of other diseases of the musculoskeletal system and connective tissue Glucose Fasting 11/21/22 E78.5 - Hyperlipidemia, unspecified, E79.0 - Hyperuricemia without signs of inflammatory arthritis and tophaceous disease, R73.01 - Impaired fasting glucose, Z82.69 - Family history of other diseases of the musculoskeletal system and connective tissue Vitamin D 25-OH Total 11/21/22 Z78.0 - Asymptomatic menopausal state, Z86.39 - Personal history of other endocrine, nutritional and metabolic disease TSH reflex Free T4 11/21/22 Z86.39 - Personal history of other endocrine, nutritional and metabolic disease Hemoglobin A1c 11/21/22 R73.01 - Impaired fasting glucose Medications: Refilled rosuvastatin 5 mg PO DAILY 90 tabs 3RF Coding Level of Care Code Tele Est Pt Level 3 (41060) Diagnoses Dyslipidemia E78.5 Hyperuricemia E79.0 Impaired fasting glucose R73.01 Family history of gout Z82.69 Additional Codes SHERON-7 Assessment Billing - SHERON-7 Assessment Tool: SHERON-7 Assessment 66346 ([id number])
== END 2022-11-21 16:42 | disposition home or self-care (01) ==
LOC: HO.HMGC 14:38
PROVIDERS: PCP Internal Medicine; Visit Provider Internal Medicine
DX: E78.5 Hyperlipidemia, unspecified (principal); E79.0 Hyperuricemia without signs of inflammatory arthritis and tophaceous disease; R73.01 Impaired fasting glucose; Z82.69 Family history of other diseases of the musculoskeletal system and connective tissue
CPT/HCPCS: 99213

== ENCOUNTER 2022-12-05 08:02 | Outpatient (REF) | payer OTHER, SELFPAY ==
[2022-12-05 11:55] LABS: Estimated Average Glucose 100 mg/dL; Hemoglobin A1c % 5.1 % (<6.0)
[2022-12-05 12:26] LABS: Alanine Aminotransferase 19 U/L (0-31); Aspartate Amino Transferase 26 U/L (5-31); Cholesterol 215 mg/dL (<200); Glucose Fasting 91 mg/dL (60-99); HDL Cholesterol 70 mg/dL (>40); LDL Cholesterol Calculated 131 mg/dL (<100); Triglycerides 74 mg/dL (<150); Uric Acid 6.2 mg/dL (2.4-5.7); Vitamin D 25-OH Total 67.9 ng/mL (>30)
[2022-12-05 13:10] LABS: TSH reflex Free T4 2.13 uIU/mL (0.32-4.0)
== END 2022-12-05 08:03 | disposition home or self-care (01) ==
LOC: HO.HMGCLDS 08:02
PROVIDERS: PCP Internal Medicine; Visit Provider Internal Medicine
DX: E79.0 Hyperuricemia without signs of inflammatory arthritis and tophaceous disease (principal); R73.01 Impaired fasting glucose; E78.5 Hyperlipidemia, unspecified; Z78.0 Asymptomatic menopausal state; Z86.39 Personal history of other endocrine, nutritional and metabolic disease; Z82.69 Family history of other diseases of the musculoskeletal system and connective tissue
CPT/HCPCS: 36415; 80061; 82306; 82947; 83036; 84443; 84450; 84460; 84550

== ENCOUNTER 2023-10-20 15:12 | Outpatient (REF) | payer OTHER, SELFPAY ==
--- NOTE | ~2023-10-20 | MM_ITS ---
EXAMINATION: MM SCREENING DIGITAL BREAST TOMOSYNTHESIS, BILATERAL CLINICAL INFORMATION: Screening. Asymptomatic. COMPARISON: Mammography: Comparison is made with available priors TECHNIQUE: Digital breast mammography with tomosynthesis is performed in both the craniocaudal and mediolateral oblique views along with computer-aided detection (CAD). FINDINGS: The breasts are extremely dense, which lowers the sensitivity of mammography (ACR BI-RADS breast composition Category d). There are no significant masses, abnormal calcifications, or other abnormalities. MM/MM tomosynthesis screening BI IMPRESSION: No mammographic evidence of malignancy. ASSESSMENT: BI-RADS BI-RADS 1 - Negative RECOMMENDATION: Routine annual mammography screening. 1 year F/U This examination should not preclude the clinical evaluation of a suspicious palpable abnormality. This patient's information was entered into a reminder system with a target due date for their next mammogram. Electronically signed by: Yoly Robertson DO 11/03/2023 01:31 PM EDT
== END 2023-10-20 15:13 | disposition home or self-care (01) ==
LOC: HO.MAMMO 15:12
PROVIDERS: PCP Internal Medicine; Visit Provider Internal Medicine
DX: Z12.31 Encounter for screening mammogram for malignant neoplasm of breast (principal)
CPT/HCPCS: 77063; 77067

== ENCOUNTER → 2023-10-20 15:30 | Outpatient (BNV) | payer OTHER, SELFPAY | PROVIDERS: PCP Internal Medicine; Visit Provider Internal Medicine | DX: Z12.31 Encounter for screening mammogram for malignant neoplasm of breast (principal) | CPT/HCPCS: 77063; 77067 ==

== ENCOUNTER 2024-01-15 11:35 | Outpatient (AMB) | payer OTHER, SELFPAY ==
--- NOTE | 2024-01-15 11:32 | A.OFFPC_ITS ---
Intake Visit Reasons: Meds f/u [phone] iOS Allergies aspirin [Aspirin] Allergy (Mild, Verified 01/15/24 12:04) LARGER DOSES ONLY--HIVES, hives latex [Latex] Allergy (Mild, Verified 01/15/24 12:04) ITCHING/RASH ibuprofen [From MOTRIN] Allergy (Unknown, Verified 01/15/24 12:04) HIVES aspirin in reg/strong doses (t Allergy (Unknown, Uncoded 01/15/24 12:04) hives Medication List - Last Reconciled 01/15/24 by Lolis Ching MD rosuvastatin 5 mg PO DAILY Tobacco use date assessed: 01/15/24 Dental Screening Dental Screen Date: 01/15/24 Did you have a dental visit in the last 12 months?: Yes Did you have a dental problem in the last 6 months where you did not have access to dental care?: No Was dental information given to patient?: Patient has dentist HPI Meds f/u [phone] iOS HPI Details The patient is a 53-year-old female presenting for an annual follow-up regarding her hyperlipidemia and previously elevated uric acid levels. The patient has been managing hyperlipidemia with Rosuvastatin 5 mg/tblet . She stated she takes her medication every other day with no reported muscle pain as a side effect. She denies taking any medication specifically for uric acid, but has been trying to adhere to a low purine diet. For the past week , however , she has been eating chicharron , brought over by her [id number] during break. . There were no new acute issues or significant changes in her condition noted during the visit. [facility] Medical History Hyperuricemia Impaired fasting glucose History of hyperthyroidism Family history of gout Dyslipidemia Surgical History S/P laparoscopic cholecystectomy History of breast biopsy Family History Father CAD (coronary artery disease) Cancer of prostate Colon cancer Hyperlipidemia CVD (cardiovascular disease) Gout Mother Hyperlipidemia HTN (hypertension) Psoriasis Rheumatoid arthritis Gout Maternal Aunt Breast cancer Gout Paternal Aunt Myocardial infarction Gout Brother Gout Brother Gout Daughter No problems noted. Daughter No problems noted. Social History (Updated 01/16/24 @ 01:38 by Lolis Ching MD) Household Members: Family Housing: House Do you presently have visiting nurse or other home services: No Alcohol intake: current Alcohol intake frequency: holidays/special occasions only Patient Tobacco Use Status: Former Tobacco user Tobacco use type: Cigarette e-Cigarette/Vaping Use: Never Used service: No Current occupational status: employed Cognitive needs: No Hearing needs: No Vision needs: Yes Questionnaire PHQ-9 Over the last 2 weeks, how often have you been bothered by any of the following problems? 1. Little interest or pleasure in doing things: not at all 2. Feeling down, depressed, or hopeless: not at all 3. Trouble falling or staying asleep, or sleeping too much: not at all 4. Feeling tired or having little energy: not at all 5. Poor appetite or overeating: not at all 6. Feeling bad about yourself - or that you are a failure or have let yourself or your family down: not at all 7. Trouble concentrating on things, such as reading the newspaper or watching television: not at all 8. Moving or speaking so slowly that other people could have noticed. Or the opposite - being so fidgety or restless that you have been moving around a lot more than usual: not at all 9. Thoughts that you would be better off or of hurting yourself in some way: not at all Total score: 0 Depression Screening Interpretation: Negative Depression Screening Done: Yes 68742 - PHQ-9 Billing: Yes Source: Developed by Drs. Phuc Henry, Aditi Peralta, Gomez Urbina and colleagues, with an educational vikram from [employer]. Thrive Questionnaire Date Thrive assessed: 01/15/24 I am a: Patient What is your living situation today?: I have a steady place to live Within the past 12 months, did the food you bought not last and you didn't have the money to get more?: Never true Within the past 12 months, did you worry whether your food would run out before you got money to buy more?: Never true Do you have trouble paying for medicines?: No Do you have trouble getting transportation to medical appointments?: No Do you have trouble paying your heating and electricity bill?: No Do you have trouble taking care of your child, family member or friend?: No Do you have trouble with day-to-day activities such as bathing, preparing meals, shopping, managing finances, etc.?: No Are you currently unemployed and looking for a job?: No Are you interested in more education?: No THRIVE Score: 0 AUDIT C Alcohol Use Questionnaire (AUDIT-C) 1. How often do you have a drink containing alcohol?: Monthly or less 2. How many drinks containing alcohol do you have on a typical day when you are drinking?: 1 or 2 3. How often do you have six or more drinks on one occasion?: Never Total Score: 1 SHERON-7 AMB Questionnaire SHERON-7 Date SHERON - 7 assessed: 01/15/24 Feeling nervous, anxious, or on edge: 0 = Not at all Not being able to stop or control worryin = Not at all Worrying too much about different things: 0 = Not at all Trouble relaxin = Not at all Being so restless that it is hard to sit still: 0 = Not at all Becoming easily annoyed or irritable: 0 = Not at all Feeling afraid as if something awful might happen: 0 = Not at all Total SHERON-7 score (0-4 normal; 5-9 mild; 10-14 moderate; 15-21 severe): 0 Source: Developed by Drs. Phuc Henry, Aditi Peralta, Gomez Urbina and colleagues, with an educational vikram from [employer]. SHERON-7 Assessment Billing SHERON-7 Assessment Tool: SHERON-7 Assessment 85427 Review of Systems Const Denies body aches and Denies headache(s) ENT Denies dizziness, Denies headache(s) and Denies nasal congestion Card Denies chest pain, Denies lightheadedness, Denies palpitations and Denies dyspnea Resp Denies chest congestion, Denies cough and Denies dyspnea GI Denies abdominal pain, Denies change in bowel habits and Denies heartburn Denies urinary frequency, Denies dysuria and Denies urinary urgency Musc Details: Intermittent episodes of pain and stiffness in fingers of both hands as well as in toes and hip, resolve spontaneously Skin/Breast Denies lesions and Denies rash Neuro Denies dizziness and Denies headache(s) Endo Denies polydipsia, Denies polyuria and Denies palpitations Aller/Immun Denies seasonal rhinorrhea Physical exam (Primary Care) Tobacco/Smoking Status: Tobacco use Status Tobacco use date assessed 01/15/24 01/15/24 11:34 Patient Tobacco Use Status Former Tobacco user 01/15/24 11:34 Tobacco use type Cigarette 01/15/24 11:34 e-Cigarette/Vaping Use Never Used 01/15/24 11:34 PHQ-9: PHQ-9 Score PHQ-9: Total score 0 01/15/24 12:17 Depression Screening Interpretation: Negative Thrive Assessment: Date of Thrive Assessment Date Thrive assessed 01/15/24 01/15/24 11:34 Telehealth Telehealth Telehealth Platform: [email or web address] Location of provider rendering services: practice address Location of patient: address on file Patient Identification confirmed using: Name, : Yes Telehealth method: video Patient verbally consented to treatment: Yes Patient verbally consented to billing insurance company: Yes Patient informed of any privacy concerns related to visit: Yes Minutes spent on Phone/Video with Pt.: 15 Coding Level of Care Code Tele Est Pt Level 3 (13615) Diagnoses Dyslipidemia E78.5 Hyperuricemia E79.0 Additional Codes PHQ-9 - 35505 - PHQ-9 Billing: Yes ([id number]) SHERON-7 Assessment Billing - SHERON-7 Assessment Tool: SHERON-7 Assessment 77382 ([id number]) Assessment & Plan Assessment & Plan (1) Dyslipidemia: Code(s): E78.5 - Hyperlipidemia, unspecified Category: Medical (2) Hyperuricemia: Code(s): E79.0 - Hyperuricemia without signs of inflammatory arthritis and tophaceous disease Category: Medical Plan - Hyperlipidemia: Continue current medication regimen every other day. Order blood work to monitor cholesterol levels and adjust treatment as necessary. - Uric Acid Elevation: Order laboratory testing to evaluate current uric acid levels. Advise on dietary modifications to minimize exacerbations. The patient is advised to schedule lab work prior to her next follow-up. Patient was informed and verbally consented to the use of an ambient scribe for clinic note documentation during this visit. Orders: Orders Creatine Kinase Total 01/15/24 E78.5 - Hyperlipidemia, unspecified, E79.0 - Hyperuricemia without signs of inflammatory arthritis and tophaceous disease, R73.01 - Impaired fasting glucose Alanine Aminotransferase 01/15/24 E78.5 - Hyperlipidemia, unspecified, E79.0 - Hyperuricemia without signs of inflammatory arthritis and tophaceous disease, R73.01 - Impaired fasting glucose Lipid Panel 01/15/24 E78.5 - Hyperlipidemia, unspecified, E79.0 - Hyperuricemia without signs of inflammatory arthritis and tophaceous disease, R73.01 - Impaired fasting glucose Basic Metabolic Panel Fasting 01/15/24 E78.5 - Hyperlipidemia, unspecified, E79.0 - Hyperuricemia without signs of inflammatory arthritis and tophaceous disease, R73.01 - Impaired fasting glucose Uric Acid 01/15/24 E78.5 - Hyperlipidemia, unspecified, E79.0 - Hyperuricemia without signs of inflammatory arthritis and tophaceous disease, R73.01 - I mpaired fasting glucose Aspartate Amino Transferase 01/15/24 E78.5 - Hyperlipidemia, unspecified, E79.0 - Hyperuricemia without signs of inflammatory arthritis and tophaceous disease, R73.01 - Impaired fasting glucose Vitamin D 25-OH Total 01/15/24 E78.5 - Hyperlipidemia, unspecified, E79.0 - Hyperuricemia without signs of inflammatory arthritis and tophaceous disease, R73.01 - Impaired fasting glucose Medications: Refilled rosuvastatin 5 mg PO DAILY 90 tabs 3RF
== END 2024-01-15 14:27 | disposition home or self-care (01) ==
LOC: HO.HMCC 11:35
PROVIDERS: PCP Internal Medicine; Visit Provider Internal Medicine
DX: E78.5 Hyperlipidemia, unspecified (principal); E79.0 Hyperuricemia without signs of inflammatory arthritis and tophaceous disease

== ENCOUNTER → 2024-01-15 11:35 | Outpatient (BNVA) | payer OTHER, SELFPAY | PROVIDERS: PCP Internal Medicine; Visit Provider Internal Medicine | DX: E78.5 Hyperlipidemia, unspecified (principal); E79.0 Hyperuricemia without signs of inflammatory arthritis and tophaceous disease | CPT/HCPCS: 96127 ==

== ENCOUNTER 2024-03-16 07:57 | Outpatient (REF) | payer OTHER, SELFPAY ==
[2024-03-16 10:05] LABS: Appearance Urine Cloudy; Color Urine Yellow; Glucose Urine UA Negative (Negative); Leukocyte Esterase Urine Moderate (2+) (Negative); Nitrite Urine Negative (Negative); UMIC TRIGGER UACC YES; Urine Blood Small (1+) (Negative); Urine Ketones Negative (Negative); Urine Protein Negative (Neg-Trace)
[2024-03-16 10:13] LABS: Alanine Aminotransferase 27 U/L (0-31); Anion Gap 11 (12-20); Aspartate Amino Transferase 38 U/L (5-31); Blood Urea Nitrogen 11 mg/dL (9-16); Calcium 9.3 mg/dL (8.4-10.2); Carbon Dioxide 27 mmol/L (22-29); Chloride 105 mmol/L (96-108); Cholesterol 220 mg/dL (<200); Estimated Glomerular Filt Rate > 60; Glucose Fasting 87 mg/dL (60-99); HDL Cholesterol 79 mg/dL (>40); LDL Cholesterol Calculated 123 mg/dL (<100); Potassium 4.2 mmol/L (3.3-5.1); Sodium 139 mmol/L (135-145); Triglycerides 92 mg/dL (<150)
[2024-03-16 10:15] LABS: Bacteria Urine None Seen (None Seen); Calcium Oxalate Crystals Urine Present; Hyaline Casts Urine 0-2 /LPF (0-2); Squamous Epithelial Cell Urine 0-2 /HPF (0-2); UACC Culture Trigger YES; WBC Clumps Urine Present
[2024-03-16 10:50] LABS: Vitamin D 25-OH Total 62.7 ng/mL (>30)
[2024-03-16 11:04] LABS: Uric Acid 5.9 mg/dL (2.4-5.7)
== END 2024-03-16 07:58 | disposition home or self-care (01) ==
LOC: HO.HMGCLDS 07:57
PROVIDERS: PCP Internal Medicine; Visit Provider Internal Medicine
DX: E79.0 Hyperuricemia without signs of inflammatory arthritis and tophaceous disease (principal); R73.01 Impaired fasting glucose; E78.5 Hyperlipidemia, unspecified; R82.90 Unspecified abnormal findings in urine
CPT/HCPCS: 36415; 80048; 80061; 81001; 81003; 82306; 82550; 84450; 84460; 84550; 87086; 87088; 87186

== ENCOUNTER 2024-07-08 07:55 | Outpatient (REF) | payer OTHER, SELFPAY ==
[2024-07-08 11:18] LABS: Appearance Urine Clear; Color Urine Yellow; Glucose Urine UA Negative (Negative); Leukocyte Esterase Urine Small (1+) (Negative); Nitrite Urine Negative (Negative); UMIC TRIGGER UACC YES; Urine Blood Negative (Negative); Urine Ketones Negative (Negative); Urine Protein Trace mg/dL (Neg-Trace)
[2024-07-08 12:04] LABS: Bacteria Urine None Seen (None Seen); Calcium Oxalate Crystals Urine Present; Hyaline Casts Urine 0-2 /LPF (0-2); RBC Urine 0-2 /HPF (0-2); Squamous Epithelial Cell Urine 0-2 /HPF (0-2); UACC Culture Trigger YES; WBC Urine 0-5 /HPF (0-5)
== END 2024-07-08 07:56 | disposition home or self-care (01) ==
LOC: HO.HMGCLDS 07:55
PROVIDERS: PCP Internal Medicine; Visit Provider Internal Medicine
DX: R35.0 Frequency of micturition (principal)
CPT/HCPCS: 81001; 81003; 87086

== ENCOUNTER 2024-10-07 09:20 | Outpatient (REF) | payer OTHER, SELFPAY ==
[2024-10-07 14:04] LABS: Alanine Aminotransferase 21 U/L (0-31); Albumin Level 4.7 g/dL (3.5-5.0); Alkaline Phosphatase 70 U/L (39-117); Aspartate Amino Transferase 32 U/L (5-31); Cholesterol 212 mg/dL (<200); HDL Cholesterol 65 mg/dL (>40); Total Protein 8.0 g/dL (6.5-8.0); Triglycerides 60 mg/dL (<150)
[2024-10-07 14:27] LABS: Uric Acid 6.6 mg/dL (2.4-5.7)
== END 2024-10-07 09:21 | disposition home or self-care (01) ==
LOC: HO.HMGCLDS 09:20
PROVIDERS: PCP Internal Medicine; Visit Provider Internal Medicine
DX: E79.0 Hyperuricemia without signs of inflammatory arthritis and tophaceous disease (principal); E78.5 Hyperlipidemia, unspecified; R73.01 Impaired fasting glucose; Z86.39 Personal history of other endocrine, nutritional and metabolic disease
CPT/HCPCS: 36415; 80061; 80076; 82550; 82947; 84443; 84550

== ENCOUNTER 2024-10-25 15:10 | Outpatient (REF) | payer OTHER, SELFPAY | END 2024-10-25 15:11 | disposition home or self-care (01) | LOC: HO.MAMMO 15:10 | PROVIDERS: PCP Internal Medicine; Visit Provider Internal Medicine | DX: Z12.31 Encounter for screening mammogram for malignant neoplasm of breast (principal) | CPT/HCPCS: 77063; 77067 ==

== ENCOUNTER → 2024-10-25 15:15 | Outpatient (BNV) | payer OTHER, SELFPAY | PROVIDERS: PCP Internal Medicine; Visit Provider Internal Medicine | DX: Z12.31 Encounter for screening mammogram for malignant neoplasm of breast (principal) | CPT/HCPCS: 77063; 77067 ==

== ENCOUNTER 2024-11-01 09:37 | Outpatient (AMB) | payer OTHER, SELFPAY ==
--- NOTE | 2024-11-01 09:47 | MHC.PC.OV ---
Vital Signs 11/01/24 10:05 11/01/24 10:36 Height 5 ft 3.5 in Weight 123 lb BMI 21.4 BP 130/66 120/70 Blood Pressure Location Lt brachial Lt brachial Position Sitting Sitting Respiration 16 Pulse 58 Pulse Source Pulse Oximeter Temp 98.1 F Temp Source Oral Pulse Oximetry (%) 96 Intake Visit Reasons: Annual PE Intake Note: Pt is here today for her PE Allergies aspirin (Aspirin) Allergy (Mild, Verified 11/01/24 10:36) LARGER DOSES ONLY--HIVES, hives latex (Latex) Allergy (Mild, Verified 11/01/24 10:36) ITCHING/RASH ibuprofen (From MOTRIN) Allergy (Unknown, Verified 11/01/24 10:36) HIVES aspirin in reg/strong doses (t Allergy (Unknown, Uncoded 11/01/24 10:36) hives Medication List - Last Reconciled 11/06/24 by Lolis Ching MD rosuvastatin 5 mg PO DAILY Tobacco use date assessed: 11/01/24 Dental Screening Dental Screen Date: 11/01/24 HPI Annual PE HPI Details 54-year-old lady here today for her physical exam. She has dyslipidemia, currently compliant with diet, has been more fish and vegetables and avoiding lot of meat intake, currently taking rosuvastatin 5 mg 1 tablet daily. She exercises regularly does a lot of hiking, stays active. Has been feeling well with no complaints at present time. She is up-to-date with her screening mammogram which showed presence of dense breasts bilaterally. No family history of breast cancer. Up-to-date with her cervical cancer screening, done in 2022 with negative findings. Up-to-date with her screening colonoscopy done in 2018 with negative findings. [facility] Medical History (Updated 11/01/24 @ 10:41 by Lolis Ching MD) Dense breast Extremely dense tissue of both breasts on mammography Hyperuricemia Impaired fasting glucose History of hyperthyroidism Family history of gout Dyslipidemia Surgical History S/P laparoscopic cholecystectomy History of breast biopsy Family History Father CAD (coronary artery disease) Cancer of prostate Colon cancer Hyperlipidemia CVD (cardiovascular disease) Gout Mother Hyperlipidemia HTN (hypertension) Psoriasis Rheumatoid arthritis Gout Maternal Aunt Breast cancer Gout Paternal Aunt Myocardial infarction Gout Brother Gout Brother Gout Daughter No problems noted. Daughter No problems noted. Social History Household Members: Family Housing: House Do you presently have visiting nurse or other home services: No Alcohol intake: current Alcohol intake frequency: holidays/special occasions only Patient Tobacco Use Status: Former Tobacco user Tobacco use type: Cigarette e-Cigarette/Vaping Use: Never Used service: No Current occupational status: employed Cognitive needs: No Hearing needs: No Vision needs: Yes Questionnaire PHQ-9 Over the last 2 weeks, how often have you been bothered by any of the following problems? 1. Little interest or pleasure in doing things: not at all 2. Feeling down, depressed, or hopeless: not at all 3. Trouble falling or staying asleep, or sleeping too much: not at all 4. Feeling tired or having little energy: not at all 5. Poor appetite or overeating: not at all 6. Feeling bad about yourself - or that you are a failure or have let yourself or your family down: not at all 7. Trouble concentrating on things, such as reading the newspaper or watching television: not at all 8. Moving or speaking so slowly that other people could have noticed. Or the opposite - being so fidgety or restless that you have been moving around a lot more than usual: not at all 9. Thoughts that you would be better off or of hurting yourself in some way: not at all Total score: 0 Depression Screening Interpretation: Negative Depression Screening Done: Yes 39384 - PHQ-9 Billing: Yes Source: Developed by Drs. Phuc Henry, Aditi Peralta, Gomez Urbina and colleagues, with an educational vikram from [employer]. Thrive Questionnaire Date Thrive assessed: 10/31/24 I am a: Patient What is your living situation today?: I have a steady place to live Within the past 12 months, did the food you bought not last and you didn't have the money to get more?: Never true Within the past 12 months, did you worry whether your food would run out before you got money to buy more?: Never true Do you have trouble paying for medicines?: No Do you have trouble getting transportation to medical appointments?: No Do you have trouble paying your heating and electricity bill?: No Do you have trouble taking care of your child, family member or friend?: No Do you have trouble with day-to-day activities such as bathing, preparing meals, shopping, managing finances, etc.?: No Are you currently unemployed and looking for a job?: No Are you interested in more education?: No Please select the resources that you would like help with: None Currently or been in a relationship where the following occur: No concerns reported THRIVE Score: 0 AUDIT C Alcohol Use Questionnaire (AUDIT-C) 1. How often do you have a drink containing alcohol?: 2-4 times a month 2. How many drinks containing alcohol do you have on a typical day when you are drinking?: 1 or 2 3. How often do you have six or more drinks on one occasion?: Never Total Score: 2 SHERON-7 AMB Questionnaire SHERON-7 Date SHERON - 7 assessed: 11/01/24 Feeling nervous, anxious, or on edge: 0 = Not at all Not being able to stop or control worryin = Not at all Worrying too much about different things: 0 = Not at all Trouble relaxin = Not at all Being so restless that it is hard to sit still: 0 = Not at all Becoming easily annoyed or irritable: 1 = Several days Feeling afraid as if something awful might happen: 0 = Not at all Total SHERON-7 score (0-4 normal; 5-9 mild; 10-14 moderate; 15-21 severe): 1 Source: Developed by Drs. Phuc Henry, Aditi Peralta, Gomez Urbina and colleagues, with an educational vikram from [employer]. SHERON-7 Assessment Billing SHERON-7 Assessment Tool: SHERON-7 Assessment 48247 Review of Systems Const Denies body aches and Denies headache(s) Eyes Details: Wears reading glasses as needed ENT Denies dizziness, Denies headache(s) and Denies nasal congestion Card Denies chest pain, Denies lightheadedness, Denies palpitations and Denies dyspnea Resp Denies chest congestion, Denies cough and Denies dyspnea GI Denies abdominal pain, Denies change in bowel habits and Denies heartburn Denies urinary frequency, Denies dysuria and Denies urinary urgency Musc Details: Intermittent episodes of pain and stiffness in fingers of both hands as well as in toes and hip, resolve spontaneously Skin/Breast Denies lesions and Denies rash Neuro Denies dizziness and Denies headache(s) Psych Reports no additional complaints Endo Denies polydipsia, Denies polyuria and Denies palpitations Francisco/Lymph Reports no additional complaints Aller/Immun Denies seasonal rhinorrhea Physical exam (Primary Care) Vital Signs: Last Vital Signs Temp 98.1 F 11/01/24 10:05 Pulse 58 11/01/24 10:05 Resp 16 11/01/24 10:05 BP 120/70 11/01/24 10:36 Pulse Ox 96 11/01/24 10:05 BMI result Body Mass Index 21.4 Tobacco/Smoking Status: Tobacco use Status Tobacco use date assessed 11/01/24 11/01/24 09:52 Patient Tobacco Use Status Former Tobacco user 11/01/24 09:52 Tobacco use type Cigarette 11/01/24 09:52 e-Cigarette/Vaping Use Never Used 11/01/24 09:52 PHQ-9: PHQ-9 Score PHQ-9: Total score 0 11/01/24 10:36 Depression Screening Interpretation: Negative Thrive Assessment: Date of Thrive Assessment Date Thrive assessed 10/31/24 11/01/24 09:52 Currently or been in a relationship where the following occur: No concerns reported Const Other: Alert oriented x3, no acute cardiorespiratory distress noted ambulatory with normal gait Nutritional Appearance: average body habitus Orientation/consciousness: patient oriented x3 [facility] Head: Yes normocephalic Ears: external ears normal, TM's normal bilaterally and EAC's normal General nose exam: Normal external nose present and Normal nares present Face and sinus: Yes face symmetric Mouth: Normal oral and palatal mucosa present and moist mucous membranes Eyes General: appearance normal, both eyes and all related structures Neck Neck: Yes full ROM, Yes no lymphadenopathy, Yes no meningeal signs and Yes supple Chest Chest palpation & inspection: normal inspection of the chest Breast/axilla palpation: normal palpation of the breasts and normal palpation of the axillae Resp Effort & Inspection: normal respiratory effort and able to speak in complete sentences Auscultation: clear to auscultation bilaterally Cardio Palpation: normal PMI Rate: regular rate Rhythm: regular rhythm Heart sounds: S1 normal heart sound present and S2 normal heart sound present GI Palpation (GI): Soft to palpation, nontender, no guarding and no masses Auscultation: normal bowel sounds General: Yes no CVA tenderness Back/Spine/Pelvis Back: no CVA tenderness and No back tenderness Skin General skin exam: no rashes or lesions noted Neuro General: patient oriented x3, gait normal, moves all extremities, Normal light touch and pain sensation, no meningeal signs, no focal motor deficits, CN's II-XI intact bilaterally and normal sensation to monofilament Extrem General: Yes full ROM, Yes no joint enlargement, Yes no pedal edema, Yes no calf tenderness and Yes normal gait Psych Appearance: grossly normal and well kempt Mental Status: mental status grossly normal Speech and movement: Normal speech and movement present Affect: normal affect Results Reviewed Results Reviewed: Name: Ade Hooks Age/Sex: 54/F : 1970 Unit#: [id number] Attend Dr: Lolis Ching MD Re10/07/24 Status: DEP REF Location: [facility] Disch: SPEC : [id number] ZAKIA: 10/07/24 STATUS: COMP REQ : [id number] RECD: 10/07/[address]: Lolis Ching MD COMP: 10/07/24 ENTERED: 10/07/[address]: ORDERED: Liver Panel, Glu Fasting, Uric, CK Total, Lipid Panel, TSH Rflx Test Result Flag Reference FBS 93 60-99 mg/dL Uric Acid 6.6 H 2.4-5.7 mg/dL Total Bili 0.6 0.0-1.0 mg/dL Direct Bili 0.2 0.0-0.5 mg/dL AST (GOT) 32 H 5-31 U/L ALT (GPT) 21 0-31 U/L CK Total 139 26-140 U/L Protein, Total 8.0 6.5-8.0 g/dL Alb 4.7 3.5-5.0 g/dL Triglyceride 60 <150 mg/dL Desirable Triglyceride: less than 150 mg/dL Borderline High Triglyceride 150-199 mg/dL High Triglyceride: 200-499 mg/dL Very High Triglyceride: greater than or equal to 5OO mg/dL Cholesterol 212 H <200 mg/dL Desirable Cholesterol: less than 200 mg/dL Borderline High Cholesterol: 200-239 mg/dL High Cholesterol: greater than 239 mg/dL LDL Calculated 135 H <100 mg/dL Desirable LDL: less than 100 mg/dL Near Optimal/Above Optimal LDL: 110-129 mg/dL Borderline High LDL: 130-159 mg/dL High LDL: 160-189 mg/dL Very High LDL: greater than or equal to 190 mg/dL HDL 65 >40 mg/dL Desirable HDL: greater than 40 mg/dL Note: This HDL assay may give artificially low results in patients with liver disease. Alk Phos 70 39-117 U/L TSH 1.48 0.32-4.0 uIU/mL Coding Level of Care Code Est Pt Prev Care 40-64y(29675) Diagnoses Annual visit for general adult medical examination with abnormal findings Z00.01 Dyslipidemia E78.5 Extremely dense tissue of both breasts on mammography R92.343 Hyperuricemia E79.0 History of hyperthyroidism Z86.39 Additional Codes SHERON-7 Assessment Billing - SHERON-7 Assessment Tool: SHERON-7 Assessment 22995 ([id number]) PHQ-9 - 99844 - PHQ-9 Billing: Yes ([id number]) Assessment & Plan Assessment & Plan (1) Annual visit for general adult medical examination with abnormal findings: Code(s): Z00.01 - Encounter for general adult medical examination with abnormal findings Category: Medical Plan: Will check appropriate labs. Recommended dental visit every 6 months and regular eye exams, at least every 2 years. Take adequate calcium in diet and vitamin-D 3 at 2000 IU per cap once a day, in addition to weight-bearing exercises to help maintain good muscle tone and weight control. Instructed to do self-breast exam, and continue to get yearly mammogram, bilateral breast ultrasound ordered due to presence of extremely dense breast on ultrasound. Up-to-date with her cervical cancer screening, last done 2022 at [facility].. Reminded to get yearly flu vaccine, up-to-date with Tdap Colonoscopy up-to-date (2) Dyslipidemia: Code(s): E78.5 - Hyperlipidemia, unspecified Category: Medical Plan: Reviewed recent fasting lipid profile with patient with LDL cholesterol higher than normal . Continued on rosuvastatin 5 mg daily and stressed adherence to low-cholesterol diet and regular exercise, at least 30 minutes 3 to 4 times a week. Advised patient to make healthy food choices, eat more fruits, vegetables, whole grains, wild caught fish and low-fat dairy. Limit amount of meat and fried or fatty food products, as well as processed foods and fast foods. (3) Extremely dense tissue of both breasts on mammography: Code(s): R92.343 - Mammographic extreme density, bilateral breasts Category: Medical Plan: Ultrasound of both breasts ordered last March 2024, will follow-up on appointment scheduled (4) Hyperuricemia: Code(s): E79.0 - Hyperuricemia without signs of inflammatory arthritis and tophaceous disease Category: Medical Plan: High uric acid level noted. Reinforced importance of adhering to a low purine diet and getting regular exercise. Patient currently asymptomatic (5) History of hyperthyroidism: Code(s): Z86.39 - Personal history of other endocrine, nutritional and metabolic disease Category: Medical Plan: Latest thyroid levels are within normal limits. Patient currently asymptomatic
[2024-11-01 10:05] VITALS: BP 130/66; PULSE 58; RESP 16; TEMP 36.7; O2SAT 96; BMI 21.4
[2024-11-01 10:36] VITALS: BP 120/70
== END 2024-11-01 10:59 | disposition home or self-care (01) ==
LOC: HO.HMCC 09:38
PROVIDERS: PCP Internal Medicine; Visit Provider Internal Medicine
DX: Z00.01 Encounter for general adult medical examination with abnormal findings (principal); E78.5 Hyperlipidemia, unspecified; R92.343 Mammographic extreme density, bilateral breasts; E79.0 Hyperuricemia without signs of inflammatory arthritis and tophaceous disease; Z86.39 Personal history of other endocrine, nutritional and metabolic disease

== ENCOUNTER → 2024-11-01 09:37 | Outpatient (BNVA) | payer OTHER, SELFPAY | PROVIDERS: PCP Internal Medicine; Visit Provider Internal Medicine | DX: Z00.01 Encounter for general adult medical examination with abnormal findings (principal); E78.5 Hyperlipidemia, unspecified; R92.343 Mammographic extreme density, bilateral breasts; E79.0 Hyperuricemia without signs of inflammatory arthritis and tophaceous disease; Z86.39 Personal history of other endocrine, nutritional and metabolic disease | CPT/HCPCS: 96127 ==

== ENCOUNTER 2025-01-04 19:10 | Emergency (ER) | payer OTHER, SELFPAY ==
--- NOTE | ~2025-01-04 | XR_ITS ---
CLINICAL HISTORY: cp EXAM: Two views of the chest. COMPARISON: None FINDINGS: Normal cardiac, mediastinal, and hilar contours. Normal heart size. No pleural effusion or pneumothorax. Lungs are clear. No acute bone finding. IMPRESSION: 1. No acute cardiopulmonary process demonstrated. This document has been electronically signed by: Sumeet Wayne MD on 01/04/2025 20:02:41
[2025-01-04 19:11] VITALS: BP 168/77; PULSE 62; RESP 18; TEMP 36.7; O2SAT 100; BMI 22.1
--- NOTE | 2025-01-04 19:11 | ECG_ITS ---
Test Reason : CP Blood Pressure : */* mmHG Vent. Rate : 58 BPM Atrial Rate : 58 BPM P-R Int : 178 ms QRS Dur : 72 ms QT Int : 422 ms P-R-T Axes : 40 29 72 degrees QTcB Int : 414 ms Sinus bradycardia Septal infarct , age undetermined Abnormal ECG No previous ECGs available Referred By: An Ramos Electronically Signed By: Yobani Luis
--- NOTE | 2025-01-04 19:17 | ED_ITS ---
HPI - Chest Pain General Chief Complaint: Chest Pain Stated Complaint: CP Time Seen by Provider: 01/04/25 19:24 Source: patient Mode of arrival: ambulatory Limitations: no limitations History of Present Illness ED Provider: Dr. Bird HPI narrative: This is a 54-year-old female presented hospital today for chest heaviness and discomfort. Patient stated that this started approximately 17:30. Patient feel a pressure-like sensation in her chest. She stated that she was able to release some gas from her stomach and it felt better. She has history of hyperlipidemia, family history of cardiac problem. Not currently of smoker. No history of diabetes or hypertension. Denies any exertional aspect of the chest pain denies any chest pain when she ambulates or exercise or walk up stairs. She stated that she is currently asymptomatic at this time. This chest pain does not radiate to her jaw or arms. No nausea or vomiting. No cardiac problems in the past no recent stress test. Related Data Previous Rx's ?Medication ?Instructions ?Recorded rosuvastatin 5 mg tablet 5 mg PO DAILY #90 tabs 01/14 Allergies Allergy/AdvReac Type Severity Reaction Status Date / Time aspirin (Aspirin) Allergy Mild LARGER Verified 01/04/25 19:18 DOSES ONLY--HIVES, hives latex (Latex) Allergy Mild ITCHING/BEREKET Verified 01/04/25 19:18 H ibuprofen (From MOTRIN) Allergy Unknown HIVES Verified 01/04/25 19:18 aspirin in reg/strong doses Allergy Unknown hives Uncoded 11/01/24 10:36 (t Review of Systems 2 Review of Systems: Pertinent review of systems as mentioned in HPI. All other system otherwise negative. [facility] Past Medical History [facility] Narrative: Hyperlipidemia Medical History (Updated 01/05/25 @ 00:01 by Background [employer]) Dense breast Extremely dense tissue of both breasts on mammography Hyperuricemia Impaired fasting glucose History of hyperthyroidism Family history of gout Dyslipidemia Surgical History S/P laparoscopic cholecystectomy History of breast biopsy Family History Family History Father CAD (coronary artery disease) Cancer of prostate Colon cancer Hyperlipidemia CVD (cardiovascular disease) Gout Mother Hyperlipidemia HTN (hypertension) Psoriasis Rheumatoid arthritis Gout Maternal Aunt Breast cancer Gout Paternal Aunt Myocardial infarction Gout Brother Gout Brother Gout Daughter No problems noted. Daughter No problems noted. Social History Social History Household Members: Family Housing: House Do you presently have visiting nurse or other home services: No Alcohol intake: current Alcohol intake frequency: holidays/special occasions only Patient Tobacco Use Status: Former Tobacco user Tobacco use type: Cigarette e-Cigarette/Vaping Use: Never Used Advance Directives: No Advance Directives Information Provided: No Do you have a plan to hurt others: No Plan service: No Current occupational status: employed Cognitive needs: No Hearing needs: No Vision needs: Yes Physical Exam 2 Exam: Exam: General: Pleasant, no distress, interacting appropriately Head: Normacephalic, atraumatic ENT: oral mucosa moist, neck supple, no tracheal deviation Cardiovascular: Bradycardic rate, regular rhythm, no murmurs, rubbing, gallops Respiratory: CTAB, no wheeze, rales, rhonchi Extremities: No limb pain or swelling Neurological: Awake and alert, no facial droop noted Skin: Warm and dry Psychiatric: Appropriate mood and thoughts Vital Signs: Vital Signs: Last Vital Signs Temp 98.5 F 01/04/25 21:59 Pulse 51 01/04/25 21:59 Resp 15 01/04/25 21:59 BP 135/74 01/04/25 21:59 Pulse Ox 99 01/04/25 21:59 O2 Del Method Room Air 01/04/25 21:59 BMI result Body Mass Index 22.1 Course Course Course Narrative: This is a Rapid Medical Exam performed in triage by An Ramos PA-C. Full HPI, ROS and PE to be performed by primary ED provider. 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 Denies pain at present. denies N/V, lightheadedness/dizziness PE: NAD, nontoxic appearing, talking in complete sentences Plan: EKG, labs, CXR Medications Administered Discontinued Medications Generic Name Dose Route Start Last Admin Trade Name Freq PRN Reason Stop Dose Admin Nitroglycerin 0.4 mg 01/04/25 19:41 01/04/25 20:00 Nitroglycerin 0.4 Mg Tab.Subl SUBLINGUAL 01/04/25 19:42 Not Given ONCE ONE Medical Decision Making Medical Decision Making [facility] Narrative: 54-year-old female history of hyperlipidemia presented hospital today for evaluation of sudden onset of chest pressure sensation in her chest. Similar to indigestion. Given patient's presentation of chest heaviness. We will plan to pursue ACS workup. Including EKG chest x-ray, CBC CMP troponin. Review patient's EKG no sign of STEMI, she does have signs of sinus bradycardia. Patient's CBC is unremarkable, patient's chemistries unremarkable. Slight elevation AST may be secondary to fatty liver disease. Patient's troponin is negative at 7.1. Repeat troponin 7.2. Patient is chest pain-free. She is asymptomatic at this time. Review patient's chest x-ray. No signs of acute cardiopulmonary process. Patient has been monitored on the repeat chief. No further chest pain at this time. I did consider given patient's nitroglycerin however given that she is currently chest pain-free we will hold off on it at this time. Patient does have allergy to aspirin. Patient's heart score is 2. The patient is low risk. Patient will be discharged home. Instruct her to discuss with her primary care doctor to see if a stress test may be appropriate for her. Patient agrees and understands this plan. All questions were addressed. Differential Diagnosis Differential Diagnoses: The differential diagnosis associated with the presentation includes ACS, CAD, STEMI, gastric reflux Lab Data [facility] Lab Attestation statement: I reviewed the patient's lab results. 01/04/25 19:34 01/04/25 19:34 Labs: Lab Results 01/04/25 01/04/25 Range/Units 19:34 21:03 WBC 8.5 (4.8-10.8) X10*3/uL RBC 4.51 (4.20-5.50) X10*6/uL Hgb 14.3 (12.0-16.0) g/dl Hct 40.0 (37.0-47.0) % MCV 88.7 (80.0-98.0) fL MCH 31.7 (27.0-33.0) pg MCHC 35.8 H (31.0-35.0) g/dl RDW 12.6 (11.0-16.0) % Plt Count 263 (160-400) X10*3/uL MPV 9.7 (9.4-12.3) fL Immature Gran % (Auto) 0.2 (0.0-0.4) % Neut % (Auto) 52.3 (45-73) % Lymph % (Auto) 40.1 H (20-40) % [place] % (Auto) 6.1 (2-11) % Eos % (Auto) 0.6 (0-4) % Baso % (Auto) 0.7 (0-2) % Lymph # (Auto) 3.4 (1.2-4.9) X10*3/uL [place] # (Auto) 0.5 (0.1-1.2) X10*3/uL Eos # (Auto) 0.1 (0.0-0.4) X10*3/uL Baso # (Auto) 0.1 (0.0-0.2) X10*3/uL Abs Immat Gran (auto) 0.02 (0.00-0.03) X10*3/uL Absolute Neuts (auto) 4.5 (2.0-8.3) x10*3/uL Absolute Nucleated RBC 0.000 (0.0-0.012) X10*3/uL Nucleated RBC % (auto) 0.0 (0.0-0.2) /100WBC Sodium 140 (135-145) mmol/L Potassium 4.5 (3.3-5.1) mmol/L Chloride 105 (96-108) mmol/L Carbon Dioxide 27 (22-29) mmol/L Anion Gap 13 (12-20) BUN 15 (9-16) mg/dL Creatinine 0.77 (0.5-1.4) mg/dL Estim Creat Clear Calc 64.5 Estimated GFR > 60 Random Glucose 105 (60-115) mg/dL Calcium 9.7 (8.4-10.2) mg/dL Magnesium 2.2 (1.6-2.6) mg/dL Total Bilirubin 0.3 (0.0-1.0) mg/dL Direct Bilirubin 0.1 (0.0-0.5) mg/dL AST 36 H (5-31) U/L ALT 24 (0-31) U/L Alkaline Phosphatase 86 (39-117) U/L Troponin I High Sens 7.1 7.2 (<3.5-17.0) ng/L Total Protein 8.5 H (6.5-8.0) g/dL Albumin 5.1 H (3.5-5.0) g/dL Independent Interpretation I performed an independent interpretation of an: EKG and Plain X-Ray Radiology Impression Discussion of test interpretation with radiology: I have reviewed the radiologist's reading. Chronic Conditions Hyperlipidemia Scores Heart Score History: -0- slightly suspicious ECG: -0- normal Age: -1- >45 - <65 Risk factory: -1- 1 or 2 risk factors Troponin: -0- < or = normal limit Score: 2 Risk: 1.7% Discharge Plan Discharge Clinical Impression: Atypical chest pain Patient Disposition: Home, Self-Care Instructions: Chest Pain (ED) Additional Instructions: Ask your primary care doctor to see if a stress test is appropriate for you. Prescriptions: No Action rosuvastatin 5 mg tablet 5 mg PO DAILY Qty: 90 3RF Interventions: ED Discharge Assessment Last Done: 01/04/25 21:59 Discharge Date/Time: 01/04/25 21:59 Print Language: Bhutanese
--- NOTE | 2025-01-04 19:25 | MHC.EDTECH ---
EKG done by tech in triage
[2025-01-04 19:38] LABS: MANUAL DIFF FLAG NO
[2025-01-04 19:53] VITALS: BP 148/78; PULSE 55; RESP 18; O2SAT 98
[2025-01-04 19:53] LABS: Alanine Aminotransferase 24 U/L (0-31); Albumin Level 5.1 g/dL (3.5-5.0); Alkaline Phosphatase 86 U/L (39-117); Anion Gap 13 (12-20); Aspartate Amino Transferase 36 U/L (5-31); Blood Urea Nitrogen 15 mg/dL (9-16); Calcium 9.7 mg/dL (8.4-10.2); Carbon Dioxide 27 mmol/L (22-29); Chloride 105 mmol/L (96-108); Creatinine Clr Calc Pharmacy 64.5; Estimated Glomerular Filt Rate > 60; Hematocrit 40.0 % (37.0-47.0); Hemoglobin 14.3 g/dl (12.0-16.0); Imm Gran Abs Auto 0.02 X10*3/uL (0.00-0.03); Imm Gran Pct Auto 0.2 % (0.0-0.4); Lymphocytes Absolute Auto 3.4 X10*3/uL (1.2-4.9); Magnesium 2.2 mg/dL (1.6-2.6); Mean Corpuscular HGB Conc 35.8 g/dl (31.0-35.0); Mean Corpuscular Hemoglobin 31.7 pg (27.0-33.0); Mean Corpuscular Volume 88.7 fL (80.0-98.0); NRBC Abs Auto 0.000 X10*3/uL (0.0-0.012); NRBC Pct Auto 0.0 /100WBC (0.0-0.2); Platelet Count 263 X10*3/uL (160-400); Potassium 4.5 mmol/L (3.3-5.1); Red Blood Count 4.51 X10*6/uL (4.20-5.50); Sodium 140 mmol/L (135-145); Total Protein 8.5 g/dL (6.5-8.0); White Blood Count 8.5 X10*3/uL (4.8-10.8)
--- NOTE | 2025-01-04 19:58 | PC.NURSE ---
Nitroglycerin SL 0.4mg held at this time. Patient denies chest pain at this time. VSS: BP 148/78, HR 55, 99% room air, [address] Bird, advised to hold. Pt aware to notify this RN if chest pain returns. Will administer Nitro if needed.
[2025-01-04 20:00] LABS: Troponin-I High Sensitivity 7.1 ng/L (<3.5-17.0)
--- NOTE | 2025-01-04 20:49 | ECG_ITS ---
Test Reason : CP Blood Pressure : */* mmHG Vent. Rate : 50 BPM Atrial Rate : 50 BPM P-R Int : 192 ms QRS Dur : 78 ms QT Int : 454 ms P-R-T Axes : 30 23 67 degrees QTcB Int : 413 ms Sinus bradycardia Septal infarct (cited on or before 04-Jan-2025) Abnormal ECG When compared with ECG of 04-Jan-2025 19:12, No significant change was found Referred By: Tatiana Bird Electronically Signed By: Yobani Luis
[2025-01-04 21:03] VITALS: BP 135/74; PULSE 51; RESP 15; O2SAT 99
[2025-01-04 21:30] LABS: Troponin-I High Sensitivity 7.2 ng/L (<3.5-17.0)
[2025-01-04 21:59] VITALS: BP 135/74; PULSE 51; RESP 15; TEMP 36.9; O2SAT 99
== END 2025-01-04 21:59 | disposition home or self-care (01) ==
PROVIDERS: Physician Assistant; Emergency Provider Student in an Organized Health Care Education/Training Program; PCP Internal Medicine
DX: R07.89 Other chest pain (principal); Z87.891 Personal history of nicotine dependence; R00.1 Bradycardia, unspecified; E78.5 Hyperlipidemia, unspecified
CPT/HCPCS: 36415; 71046; 80048; 80076; 83735; 84484; 85025; 93005; 99283; 99284

== ENCOUNTER → 2025-01-04 19:11 | Outpatient (BNV) | payer OTHER, SELFPAY | PROVIDERS: Emergency Provider Student in an Organized Health Care Education/Training Program; PCP Internal Medicine; Visit Provider Internal Medicine Cardiovascular Disease | DX: R00.1 Bradycardia, unspecified (principal); I25.2 Old myocardial infarction | CPT/HCPCS: 93010 ==

== ENCOUNTER → 2025-01-04 19:18 | Outpatient (BNV) | payer OTHER, SELFPAY | PROVIDERS: Emergency Provider Student in an Organized Health Care Education/Training Program; PCP Internal Medicine; Visit Provider Radiology Diagnostic Radiology | DX: R07.9 Chest pain, unspecified (principal) | CPT/HCPCS: 71046 ==

== ENCOUNTER 2025-01-13 07:52 | Outpatient (REF) | payer OTHER, SELFPAY ==
--- NOTE | ~2025-01-13 | US_ITS ---
EXAMINATION: US SCREENING ULTRASOUND BREAST, BILATERAL CLINICAL INFORMATION: Dense breasts on mammography. Screening ultrasound. COMPARISON: Comparison is made with prior relevant breast imaging on PACS. TECHNIQUE: Ultrasound is performed using grayscale imaging and color Doppler. Imaging is performed to include the four quadrants and retroareolar region. Both breasts are imaged. FINDINGS: Right breast: There is no suspicious finding by ultrasound. There is no solid mass or focal architectural abnormality. Left breast: There is no suspicious finding by ultrasound. There is no solid mass or focal architectural abnormality. US/US breast BI complete IMPRESSION: No suspicious findings on screening breast ultrasound. ASSESSMENT: Category 1: Negative RECOMMENDATION: 1 year F/U This patient's information was entered into a reminder system with a target due date for their next mammogram. Electronically signed by: Yoly Robertson DO 01/13/2025 08:50 AM [id number]
== END 2025-01-13 07:53 | disposition home or self-care (01) ==
LOC: HO.MAMMO 07:52
PROVIDERS: PCP Internal Medicine; Visit Provider Internal Medicine
DX: R92.343 Mammographic extreme density, bilateral breasts (principal)
CPT/HCPCS: 76641

== ENCOUNTER → 2025-01-13 08:00 | Outpatient (BNV) | payer OTHER, SELFPAY | PROVIDERS: PCP Internal Medicine; Visit Provider Internal Medicine | DX: R92.343 Mammographic extreme density, bilateral breasts (principal) | CPT/HCPCS: 76641 ==